=== PATIENT | female | born 1930 | race Caucasian/White ===

== ENCOUNTER 2016-12-29 08:25 | Inpatient (IN) | payer MEDICARE ==
[~2016-12-29] VITALS: Ht 170.2 cm; Wt 52.3 kg
[~2016-12-29 08:25] MED LIST: ACET325T21 PO; ACET650S11 RC; BISA10SU2 RC; CALC-104 PO; CARV25TA2 PO; CEFT1FRO2 IV; CHOL400T2 PO; DIGO125T PO; DILT180C29 PO; DILT240C32 PO; ERGO400T PO; FOLI1TAB16 PO; GUAI118S36 PO; LISI10TA2 PO; LISI2.5T PO; MAG355OR30 PO; MAGN400O4 PO; MEMA10TA PO; MIRT15TA PO; NITR0.4T6 SL; NITR100C62 PO; OMEG1CAP28 PO; OMEG1CAP6 PO; SERT50TA8 PO; SPIR25TA PO; WARF2TAB7 PO; WARF3TAB PO
--- NOTE | 2016-12-29 08:58 | EKG ---
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
[2016-12-29] MEDS ORDERED: ONDANSETRON PF 4 MG/2 ML VIAL. IV PRN (09:00)
[2016-12-29] MEDS ORDERED: DILTIAZEM 125 MG in IV DEXTROSE 5% 100 ML IV PRN (09:00)
--- NOTE | 2016-12-29 09:22 | RAD ---
Three-view left shoulder radiographs 12/29/2016 Clinical history: Left shoulder bruising. AP internal and external rotation and transscapular digital radiographs of the left shoulder were obtained. An acute comminuted fracture of the distal diaphysis/metaphysis of the left clavicle is seen. The fracture is approximately 1.2 cm proximal to the left AC joint. No extension into the left AC joint is seen. Some of the smaller fracture fragments are displaced inferiorly. No fracture or dislocation of the left glenohumeral joint is seen. Impression: Acute comminuted fracture of the distal left clavicle.
--- NOTE | 2016-12-29 09:25 | RAD ---
AP portable chest radiograph 12/29/2016 Clinical History: Fatigue and confusion. An AP portable erect digital radiograph of the chest was obtained. Comparison study is dated 11/20/2016. Surgical changes are seen consistent with a cardiac valve replacement. The cardiac silhouette is mildly enlarged. Atherosclerotic calcification of the thoracic aorta is seen. Mild elevation of the right hemidiaphragm is noted. A 1 cm nodule overlies the left upper lobe, unchanged. The pleural effusion seen on the previous examination has resolved. No area of consolidation is noted. No pneumothorax is seen. An area of scarring is seen in the lateral aspect of the left upper lobe, unchanged. An acute comminuted fracture of the distal left clavicle is noted. Impression: 1. Cardiomegaly. The pleural effusions seen on the previous examination have resolved. No area of consolidation is seen. 2. Acute comminuted fracture of the distal left clavicle.
--- NOTE | 2016-12-29 10:03 | RAD ---
CT scan of the head without contrast 12/29/2016 Clinical History: Head trauma post fall.. Technique: Unenhanced, contiguous, 5 mm axial sections were obtained through the head. One or more of the following individualized dose reduction techniques were utilized for this study: 1. Automated exposure control. 2. Adjustment of the mA and/or kV according to patient size. 3. Use of iterative reconstruction technique. Findings: Comparison study is dated 09/15/2013. There is generalized parenchymal atrophy. Small scattered areas of decreased attenuation are seen within the periventricular and subcortical white matter of both cerebral hemispheres consistent with areas of small vessel ischemic disease. Areas of encephalomalacia are seen involving the left cerebellar hemisphere and the left posterior temporal/occipital parietal lobe, unchanged. No acute parenchymal abnormality is seen. No extra-axial fluid collection is noted. Mild to moderate mucosal thickening is seen along the left maxillary sinus. No skull fracture is seen. Impression: No acute intracranial abnormality is seen. CT scan of the cervical spine without contrast 12/29/2016 Clinical history: Neck pain post fall. Technique: Unenhanced, contiguous, 0.625 mm axial sections were obtained through the cervical spine. 3 mm reconstructed sagittal, axial, and and coronal images were obtained. One or more of the following individualized dose reduction techniques were utilized for this study: 1. Automated exposure control. 2. Adjustment of the mA and/or kV according to patient size. 3. Use of iterative reconstruction technique. Findings: Sagittal and coronal reconstructed images demonstrate minimal lateral curvature of the cervical spine convex to the left. There is mild straightening of the normal cervical lordosis. Degenerative changes consisting of vertebral endplate sclerosis and minimal to mild anterior and posterior vertebral body osteophyte formation are seen involving the mid and lower cervical disc spaces. No fracture or subluxation of the cervical vertebrae is seen. Degenerative changes are seen involving the uncovertebral and facet joints throughout the cervical disc spaces. Impression: No fracture or subluxation of the cervical vertebra is seen.
[2016-12-29 10:09] LABS: BASO % 0 % (0-3); EOS % 1 % (0-3); HEMATOCRIT 41.6 % (36.0-47.0); HEMOGLOBIN 13.5 g/dL (12.0-15.5); LYMPH % 10 % (24-48); MEAN CORPUSCULAR HEMOGLOBIN 28 pg (25-35); MEAN CORPUSCULAR HGB CONC 33 g/dL (31-37); MEAN CORPUSCULAR VOLUME 85 fL (79-100); MONO % 10 % (0-9); NEUT % 79 % (31-73); PLATELET COUNT 252 x10^3/uL (140-400); RED BLOOD COUNT 4.89 x10^6/uL (3.50-5.40); WHITE BLOOD COUNT 9.9 x10^3/uL (4.0-11.0)
[2016-12-29 10:17] LABS: CALCIUM 9.9 mg/dL (8.5-10.1); CREATININE 1.3 mg/dL (0.6-1.0); POTASSIUM 4.5 mmol/L (3.5-5.1)
--- NOTE | 2016-12-29 10:23 | RAD ---
Three-view left elbow radiographs 12/29/2016. Clinical history: Left elbow bruising. AP, lateral and oblique digital radiographs of the left elbow were obtained. A 7 mm metallic foreign body is seen within the medial soft tissues of the distal left arm superior to the left elbow. No fracture or dislocation of the left elbow is seen. There is no radiographic evidence of a joint effusion. Impression: No fracture or dislocation of the left elbow is seen.
[2016-12-29 10:24] LABS: ALBUMIN 3.9 g/dL (3.4-5.0); DIRECT BILIRUBIN 0.2 mg/dL (0.0-0.2); TOTAL BILIRUBIN 0.9 mg/dL (0.2-1.0); TOTAL PROTEIN 9.2 g/dL (6.4-8.2)
[2016-12-29] MEDS ORDERED: IV NORMAL SALINE 500ML BAG 500 ML IV ONE (10:30)
--- NOTE | 2016-12-29 10:34 | PHYS DOC ---
Past Medical History Past Medical History: A-Fib, CAD, CHF, Dementia, Depression, GERD, High Cholesterol, Heart Disease, Hypertension, [place], Renal Disease, UTI Additional Past Medical Histor: ENDOCARDITIS, OSTEOPOROSIS Past Surgical History: Pacemaker, Other Additional Past Surgical Histo: MITRAL VALVE REPLACEMENT, Pacemaker removed, Skin CA removed Alcohol Use: None Drug Use: None Adult General Chief Complaint Chief Complaint: MECHANICAL FALL HPI HPI 86-year-old female presenting to the emergency department today after being brought in from EMS after being found on the floor long-term. It is unclear how long the patient is been on the floor however to be up to 6 hours reported by long-term staff. Patient was placed in a c-collar prior to arrival. She denies head or neck pain. She denies chest pain shortness of breath. Currently her mental status is reportedly worse than baseline and oriented person only. skilled nursing denies any history of fever chills cough abdominal pain nausea or vomiting. Onset today Location generalized Duration intermittent No alleviating factors present. ROS negative for chest pain shortness of breath abdominal pain nausea vomiting fevers chills neck pain or headache. She denies unilateral numbness weakness or tenderness. All other review of systems is negative unless otherwise noted in history of present illness. Review of Systems Review of Systems SEE ABOVE. Current Medications Current Medications Current Medications Medications (Trade) Dose Ordered Sig/Alan Start Time Stop Time Status Last Admin Dose Admin Diltiazem HCl/ Dextrose (Cardizem) 125 ml @ 0 mls/hr CONT PRN 12/29/16 09:00 12/29/16 10:15 5 MLS/HR Morphine Sulfate 2 mg 2 mg PRN Q2HR PRN 12/29/16 09:00 12/30/16 08:59 Ondansetron HCl (Zofran) 4 mg PRN Q8HRS PRN 12/29/16 09:00 12/30/16 08:59 Allergies Allergies Allergies Coded Allergies Type Severity Reaction Last Updated Verified sulfamethoxazole Allergy Intermediate 09/08/16 Yes trimethoprim Allergy Intermediate 09/08/16 Yes zolpidem Allergy Intermediate 06/23/14 Yes Physical Exam Physical Exam Constitutional: Well developed, well nourished, no acute distress, non-toxic appearance. [] HENT: Normocephalic, no lacerations abrasions or ecchymosis of the head or neck. No step-offs of the neck thoracic lumbar or cervical spine. Nontender midline. bilateral external ears normal, oropharynx moist, no oral exudates, nose normal. Eyes: PERRLA, EOMI, conjunctiva normal, no discharge. Neck: Normal range of motion, no tenderness, supple, no stridor. [] Cardiovascular: Tachycardic with an irregular rhythm. Mild systolic murmur present. Lungs & Thorax: Bilateral breath sounds clear to auscultation Abdomen: Bowel sounds normal, soft, no tenderness, no masses, no pulsatile masses. Skin: Warm, dry, no erythema, no rash. Back: No tenderness, no CVA tenderness. [] Extremities: No tenderness, no cyanosis, no clubbing, ROM intact, no edema. Neurologic: Alert and oriented to person, normal motor function, normal sensory function, no focal deficits noted. 5 out of 5 strength in all extremities. Psychologic: Affect normal, judgement normal, mood normal. Current Patient Data Vital Signs Vital Signs Date Time Temp Pulse Resp B/P Pulse Ox O2 Delivery O2 Flow Rate FiO2 12/29/16 08:25 97.5 115 16 168/101 97 Room Air 97.5 EKG EKG [] EKG shows an irregularly irregular rhythm with a tachycardic rate. [place] leftward. Intervals within normal limits. ST segments show mild repolarization. Radiology/Procedures Radiology/Procedures [] Course & Med Decision Making Course & Med Decision Making Pertinent Labs and Imaging studies reviewed. (See chart for details) [] 86-year-old female presenting to the emergency department today after being found down for an unknown period of time from possible fall, possible syncopal episode. Vital signs showed tachycardia afebrile. Patient was saturating well on room air. Hypertensive. Physical exam showed a tachycardic rate otherwise no evidence of trauma to the patient's head or neck. The patient did have extensive bruising of the left upper extremity which is reportedly not new from long-term facility. EKG obtained which showed A. fib with RVR. Otherwise chest x-ray head neck CT were unremarkable for any new acute pathology. Shoulder films showed subacute/acute distal clavicle fracture that was already known. The patient was in a sling upon arrival to the emergency department. The patient was initiated on a diltiazem drip for the patient's rate. The patient was admitted to our hospital for further evaluation workup and care. Orthopedics and cardiology consultations were placed. Dragon Disclaimer Dragon Disclaimer This electronic medical record was generated, in whole or in part, using a voice recognition dictation system. Departure Departure Impression: Primary Impression: Altered mental status Additional Impressions: Atrial fibrillation with RVR Mental status change Closed left clavicular fracture Disposition: ADMITTED INPATIENT Admitting Physician: Aaron Solorio Condition: STABLE Referrals: AARON SOLORIO MD (PCP) Problem Qualifiers MC GLASS MD Dec 29, 2016 10:34
[2016-12-29 10:45] LABS: BILIRUBIN,URINE NEGATIVE (NEG); GLUCOSE,URINE NEGATIVE (NEG); NITRITE,URINE NEGATIVE (NEG); PH,URINE 6.5; PROTEIN,URINE NEGATIVE (NEG-TRACE)
[2016-12-29] MEDS ORDERED: ASPIRIN 81 MG TAB.CHEW PO ONE (10:45)
[2016-12-29 11:00] LABS: BACTERIA,URINE FEW /HPF (0-FEW); RBC,URINE 0 /HPF (0-2); SQUAMOUS EPITHELIAL CELL,UR FEW /LPF; WBC,URINE OCC /HPF (0-4)
[2016-12-29] MEDS: MORPHINE SULFATE 2 MG/ML DISP.SYRIN. IV PRN ×2 (11:01→16:20)
[2016-12-29 12:00] VITALS: BP 100/60
[2016-12-29] MEDS ORDERED: FENTANYL PF 100 MCG/2 ML VIAL. IV PRN ×2 (14:45)
[2016-12-29 15:00] VITALS: BP 113/54
[2016-12-29 19:00] VITALS: BP 135/82
--- NOTE | 2016-12-29 19:25 | PDOC ---
ORTHO PROGRESS NOTES Vitals Vital Signs Date Time Temp Pulse Resp B/P Pulse Ox O2 Delivery O2 Flow Rate FiO2 12/29/16 18:36 16 98 Room Air 12/29/16 11:31 98 146/67 12/29/16 11:31 2.0 12/29/16 08:25 97.5 97.5 Labs Laboratory Tests Test 12/29/16 10:00 12/29/16 10:24 12/29/16 14:40 White Blood Count 9.9x10^3/uL (4.0-11.0) Red Blood Count 4.89x10^6/uL (3.50-5.40) Hemoglobin 13.5g/dL (12.0-15.5) Hematocrit 41.6% (36.0-47.0) Mean Corpuscular Volume 85fL (79-100) Mean Corpuscular Hemoglobin 28pg (25-35) Mean Corpuscular Hemoglobin Concent 33g/dL (31-37) Red Cell Distribution Width 16.0% (11.5-14.5) Platelet Count 252x10^3/uL (140-400) Neutrophils (%) (Auto) 79% (31-73) Lymphocytes (%) (Auto) 10% (24-48) Monocytes (%) (Auto) 10% (0-9) Eosinophils (%) (Auto) 1% (0-3) Basophils (%) (Auto) 0% (0-3) Neutrophils # (Auto) 7.8x10^3uL (1.8-7.7) Lymphocytes # (Auto) 1.0x10^3/uL (1.0-4.8) Monocytes # (Auto) 1.0x10^3/uL (0.0-1.1) Eosinophils # (Auto) 0.1x10^3/uL (0.0-0.7) Basophils # (Auto) 0.0x10^3/uL (0.0-0.2) Sodium Level 140mmol/L (136-145) Potassium Level 4.5mmol/L (3.5-5.1) Chloride Level 101mmol/L (98-107) Carbon Dioxide Level 29mmol/L (21-32) Anion Gap 10 (6-14) Blood Urea Nitrogen 42mg/dL (7-20) Creatinine 1.3mg/dL (0.6-1.0) Estimated GFR (Cockcroft-Gault) 39.0 Glucose Level 114mg/dL (70-99) Calcium Level 9.9mg/dL (8.5-10.1) Total Bilirubin 0.9mg/dL (0.2-1.0) Direct Bilirubin 0.2mg/dL (0.0-0.2) Aspartate Amino Transf (AST/SGOT) 46U/L (15-37) Alanine Aminotransferase (ALT/SGPT) 33U/L (14-59) Alkaline Phosphatase 116U/L (46-116) Creatine Kinase 263U/L (26-192) Troponin I Quantitative 0.307ng/mL (0.000-0.055) 0.285ng/mL (0.000-0.055) FA-Zbr-H-Type Natriuretic Peptide 2775pg/mL (0-449) Total Protein 9.2g/dL (6.4-8.2) Albumin 3.9g/dL (3.4-5.0) Lipase 630U/L (73-393) Urine Collection Type Void Urine Color Yellow Urine Clarity Clear Urine pH 6.5 Urine Specific Roper 1.010 Urine Protein Negativemg/dL (NEG-TRACE) Urine Glucose (UA) Negativemg/dL (NEG) Urine Ketones (Stick) Negativemg/dL (NEG) Urine Blood Negative (NEG) Urine Nitrite Negative (NEG) Urine Bilirubin Negative (NEG) Urine Urobilinogen Dipstick 1.0mg/dL (0.2 mg/dL) Urine Leukocyte Esterase Negative (NEG) Urine RBC 0/HPF (0-2) Urine WBC Occ/HPF (0-4) Urine Squamous Epithelial Cells Few/LPF Urine Bacteria Few/HPF (0-FEW) Laboratory Tests Test 12/29/16 10:00 12/29/16 10:24 12/29/16 14:40 White Blood Count 9.9x10^3/uL (4.0-11.0) Red Blood Count 4.89x10^6/uL (3.50-5.40) Hemoglobin 13.5g/dL (12.0-15.5) Hematocrit 41.6% (36.0-47.0) Mean Corpuscular Volume 85fL (79-100) Mean Corpuscular Hemoglobin 28pg (25-35) Mean Corpuscular Hemoglobin Concent 33g/dL (31-37) Red Cell Distribution Width 16.0% (11.5-14.5) Platelet Count 252x10^3/uL (140-400) Neutrophils (%) (Auto) 79% (31-73) Lymphocytes (%) (Auto) 10% (24-48) Monocytes (%) (Auto) 10% (0-9) Eosinophils (%) (Auto) 1% (0-3) Basophils (%) (Auto) 0% (0-3) Neutrophils # (Auto) 7.8x10^3uL (1.8-7.7) Lymphocytes # (Auto) 1.0x10^3/uL (1.0-4.8) Monocytes # (Auto) 1.0x10^3/uL (0.0-1.1) Eosinophils # (Auto) 0.1x10^3/uL (0.0-0.7) Basophils # (Auto) 0.0x10^3/uL (0.0-0.2) Sodium Level 140mmol/L (136-145) Potassium Level 4.5mmol/L (3.5-5.1) Chloride Level 101mmol/L (98-107) Carbon Dioxide Level 29mmol/L (21-32) Anion Gap 10 (6-14) Blood Urea Nitrogen 42mg/dL (7-20) Creatinine 1.3mg/dL (0.6-1.0) Estimated GFR (Cockcroft-Gault) 39.0 Glucose Level 114mg/dL (70-99) Calcium Level 9.9mg/dL (8.5-10.1) Total Bilirubin 0.9mg/dL (0.2-1.0) Direct Bilirubin 0.2mg/dL (0.0-0.2) Aspartate Amino Transf (AST/SGOT) 46U/L (15-37) Alanine Aminotransferase (ALT/SGPT) 33U/L (14-59) Alkaline Phosphatase 116U/L (46-116) Creatine Kinase 263U/L (26-192) Troponin I Quantitative 0.307ng/mL (0.000-0.055) 0.285ng/mL (0.000-0.055) VO-Ewa-R-Type Natriuretic Peptide 2775pg/mL (0-449) Total Protein 9.2g/dL (6.4-8.2) Albumin 3.9g/dL (3.4-5.0) Lipase 630U/L (73-393) Urine Collection Type Void Urine Color Yellow Urine Clarity Clear Urine pH 6.5 Urine Specific Roper 1.010 Urine Protein Negativemg/dL (NEG-TRACE) Urine Glucose (UA) Negativemg/dL (NEG) Urine Ketones (Stick) Negativemg/dL (NEG) Urine Blood Negative (NEG) Urine Nitrite Negative (NEG) Urine Bilirubin Negative (NEG) Urine Urobilinogen Dipstick 1.0mg/dL (0.2 mg/dL) Urine Leukocyte Esterase Negative (NEG) Urine RBC 0/HPF (0-2) Urine WBC Occ/HPF (0-4) Urine Squamous Epithelial Cells Few/LPF Urine Bacteria Few/HPF (0-FEW) Assessment and Plan note dictated subacute closed L distal clavicle fx, non-op tx PT when able to comply SIMONE CASTELAN II, MD Dec 29, 2016 19:25
[2016-12-29 23:00] VITALS: BP 100/69
[2016-12-30] VITALS (9 sets, daily range): BP systolic 91–157; BP diastolic 55–85
[2016-12-30 05:40] LABS: BASO # 0.1 x10^3/uL (0.0-0.2); BASO % 1 % (0-3); EOS % 4 % (0-3); HEMATOCRIT 35.2 % (36.0-47.0); HEMOGLOBIN 11.7 g/dL (12.0-15.5); LYMPH # 1.3 x10^3/uL (1.0-4.8); LYMPH % 16 % (24-48); MEAN CORPUSCULAR HEMOGLOBIN 28 pg (25-35); MEAN CORPUSCULAR HGB CONC 33 g/dL (31-37); MEAN CORPUSCULAR VOLUME 85 fL (79-100); MONO % 10 % (0-9); NEUT % 70 % (31-73); PLATELET COUNT 217 x10^3/uL (140-400); RED BLOOD COUNT 4.14 x10^6/uL (3.50-5.40); RED CELL DISTRIBUTION WIDTH 16.3 % (11.5-14.5); WHITE BLOOD COUNT 8.6 x10^3/uL (4.0-11.0)
[2016-12-30 05:57] LABS: CALCIUM 8.1 mg/dL (8.5-10.1); CREATININE 1.3 mg/dL (0.6-1.0); POTASSIUM 4.4 mmol/L (3.5-5.1)
--- NOTE | 2016-12-30 10:12 | PDOC2 ---
CARDIAC CONSULT DATE OF CONSULT Date of Consult DATE: 12/30/16 TIME: 10:01 REASON FOR CONSULT Reason for Consult: atrial fib RVR REFERRING PHYSICIAN Referring Physician: Dr. Forest Adorno SOURCE Source: Chart review HISTORY OF PRESENT ILLNESS HISTORY OF PRESENT ILLNESS 86 year old female known to this service with history of atrial fibrillation and syncope with 9 second pause associated with use of BB and CCB while undergoing PT. Has been rate controlled with digoxin. Was discharge to [facility] on 11/23/2016. Now with reported fall at [facility] and down time of up to 6 hours per ER records. Patient states she tripped and fell a week ago but could not state what she tripped on. Ecchymosis present on left chest extending up into shoulder and into left arm. Currently denies CP, palpitations or dyspnea. EKG atrial fib with rate about 120. NT-proBNP 2275 associated with CKD and CR of 1.3. Reason for Visit: atrial fib PAST MEDICAL HISTORY Past Medical History Cardiovascular: AFIB, CHF, HTN, Valve insufficiency (prosthetic mitral valve with presumed mitral regurgitation), Other (? of SSS with previous PPM - ? explanted for infection ) CENTRAL NERVOUS SYSTEM: CVA, Dementia GI: GERD Psych: Anxiety, Depression Musculoskeletal: Osteoarthritis Renal/: UTI, Urinary Incontinence Endocrine: Osteoporosis PAST SURGICAL HISTORY Past Surgical History see PMH FAMILY HISTORY Family History: Hypertension SOCIAL HISTORY Smoke: No ALCOHOL: none Drugs: None Lives: with Family CURRENT MEDICATIONS CURRENT MEDICATIONS Current Medications Medications (Trade) Dose Ordered Sig/Alan Route PRN Reason Start Time Stop Time Status Last Admin Dose Admin Sodium Chloride (Iv Sodium Chloride 0.9% 500ml Bag) 500 ml @ 500 mls/hr 1X ONCE IV 12/29/16 10:30 12/29/16 11:29 DC 12/29/16 10:50 Aspirin (Children'S Aspirin) 324 mg 1X ONCE PO 12/29/16 10:45 12/29/16 10:46 DC 12/29/16 10:55 Fentanyl Citrate (Fentanyl 2ml Vial) 50 mcg PRN Q3HRS PRN IV SEVERE PAIN 12/29/16 14:45 12/29/16 15:03 Fentanyl Citrate (Fentanyl 2ml Vial) 25 mcg PRN Q3HRS PRN IV MILD PAIN 12/29/16 14:45 12/29/16 18:36 ALLERGIES ALLERGIES: Coded Allergies: sulfamethoxazole (Verified Allergy, Intermediate, 09/08/16) trimethoprim (Verified Allergy, Intermediate, 09/08/16) zolpidem (Verified Allergy, Intermediate, 06/23/14) Beta-Blockers (Beta-Adrenergic Bloc (Verified Adverse Reaction, Severe, has cardiac pauses , 12/30/16) Calcium Channel Blocking Agent Dilt (Verified Adverse Reaction, Severe, has cardiac pauses, 12/30/16) ROS Review of System not reliably obtained from patient due to dementia PHYSICAL EXAM General: Alert, Cooperative HEENT: Atraumatic Lungs: Clear to auscultation, Normal air movement, Other (extensive ecchymosis over left upper chest, shoulder and left arm) Heart: Other (mechanical valvular click; tele: atrial fib with RVR) Abdomen: Normal bowel sounds, Soft, No tenderness Extremities: No edema, Normal pulses Skin: No rashes Neuro: Normal speech Psych/Mental Status: Mood NL MUSCULOSKELETAL: Osteoarthritic changes both hands VITALS VITALS Vital Signs Date Time Temp Pulse Resp B/P Pulse Ox O2 Delivery O2 Flow Rate FiO2 12/30/16 03:00 98.4 111 118/68 99 Simple Mask 2.0 98.4 12/29/16 23:00 30 LABS Lab: Laboratory Tests Test 12/29/16 10:24 12/29/16 14:40 12/29/16 20:58 12/30/16 04:55 Urine Collection Type Void Urine Color Yellow Urine Clarity Clear Urine pH 6.5 Urine Specific [place] 1.010 Urine Protein Negativemg/dL (NEG-TRACE) Urine Glucose (UA) Negativemg/dL (NEG) Urine Ketones (Stick) Negativemg/dL (NEG) Urine Blood Negative (NEG) Urine Nitrite Negative (NEG) Urine Bilirubin Negative (NEG) Urine Urobilinogen Dipstick 1.0mg/dL (0.2 mg/dL) Urine Leukocyte Esterase Negative (NEG) Urine RBC 0/HPF (0-2) Urine WBC Occ/HPF (0-4) Urine Squamous Epithelial Cells Few/LPF Urine Bacteria Few/HPF (0-FEW) Troponin I Quantitative 0.285ng/mL (0.000-0.055) 0.277ng/mL (0.000-0.055) White Blood Count 8.6x10^3/uL (4.0-11.0) Red Blood Count 4.14x10^6/uL (3.50-5.40) Hemoglobin 11.7g/dL (12.0-15.5) Hematocrit 35.2% (36.0-47.0) Mean Corpuscular Volume 85fL (79-100) Mean Corpuscular Hemoglobin 28pg (25-35) Mean Corpuscular Hemoglobin Concent 33g/dL (31-37) Red Cell Distribution Width 16.3% (11.5-14.5) Platelet Count 217x10^3/uL (140-400) Neutrophils (%) (Auto) 70% (31-73) Lymphocytes (%) (Auto) 16% (24-48) Monocytes (%) (Auto) 10% (0-9) Eosinophils (%) (Auto) 4% (0-3) Basophils (%) (Auto) 1% (0-3) Neutrophils # (Auto) 6.1x10^3uL (1.8-7.7) Lymphocytes # (Auto) 1.3x10^3/uL (1.0-4.8) Monocytes # (Auto) 0.8x10^3/uL (0.0-1.1) Eosinophils # (Auto) 0.3x10^3/uL (0.0-0.7) Basophils # (Auto) 0.1x10^3/uL (0.0-0.2) Sodium Level 140mmol/L (136-145) Potassium Level 4.4mmol/L (3.5-5.1) Chloride Level 107mmol/L (98-107) Carbon Dioxide Level 27mmol/L (21-32) Anion Gap 6 (6-14) Blood Urea Nitrogen 40mg/dL (7-20) Creatinine 1.3mg/dL (0.6-1.0) Estimated GFR (Cockcroft-Gault) 39.0 Glucose Level 91mg/dL (70-99) Calcium Level 8.1mg/dL (8.5-10.1) IMAGES IMAGES 12/29/2016: CXR: Surgical changes are seen consistent with a cardiac valve replacement. The cardiac silhouette is mildly enlarged. Atherosclerotic calcification of the thoracic aorta is seen. Mild elevation of the right hemidiaphragm is noted. A 1 cm nodule overlies the left upper lobe, unchanged. The pleural effusion seen on the previous examination has resolved. No area of consolidation is noted. No pneumothorax is seen. An area of scarring is seen in the lateral aspect of the left upper lobe, unchanged. An acute comminuted fracture of the distal left clavicle is noted. Impression: 1. Cardiomegaly. The pleural effusions seen on the previous examination have resolved. No area of consolidation is seen. 2. Acute comminuted fracture of the distal left clavicle. EKG EKG atrial fib; rate ~ 120; no acute changes ECHOCARDIOGRAM ECHOCARDIOGRAM : TTE: Left ventricle systolic function is mildly impaired. The Ejection Fraction is 45 -50%. Mild global hypokinesis. Tissue Doppler imaging reveals moderate left ventricular diastolic dysfunction. There is mild valvular aortic stenosis. Calculated aortic valve area is 1.6 cm2 with maximum pressure gradient of 13 mmHg and mean pressure gradient of 9 mmHg. The prosthetic mitral valve is not well visualized due to imaging artifacts from the prosthesis. Doppler and Color Flow revealed mild tricuspid regurgitation. The PA pressure was estimated at 32 mmHg. STRESS TEST STRESS TEST 08/2016: 1. Regadenoson cardioisotope stress test did not show any evidence of ischemia or infarct. 2. Mild global left ventricular systolic dysfunction with ejection fraction calculated at 43% 3. Low to intermediate risk for cardiac events. ASSESSMENT/PLAN ASSESSMENT/PLAN 1. atrial fib, chronic RVR likely due to pain/injury would not use diltiazem given history of 9 second pause previous PPM thought to be implanted for SSS; explanted for presumed infection ` DPOA (son) declined PPM implantation during 2 prior hospitalizations rate control with digoxin QOD due to CKD and may need to only given every 72 hours - monito 2. mechanical MVR with chronic OAC continue per primary service 3. chronic diastolic HF LVEF mildly depressed @ 45-50% continue medical management & control BP with meds 4. elevated troponin levels likely demand mediated and in the setting of CKD MPI 08/2016 was low to intermediate risk - given her dementia - not a candidate for aggressive evaluation/dementia 5. left clavicular fracture per primary/ortho Problems: VISHAL MENCHACA APRN Dec 30, 2016 10:11
[2016-12-30] MEDS ORDERED: DIGOXIN 500 MCG/2 ML AMPUL. IV ONE ×3 (10:15→20:00)
--- NOTE | 2016-12-30 13:03 | PDOC ---
PROGRESS NOTES Subjective Subjective Pt awake and pleasant. Denies pain when prompted. Objective Objective Pt awake and alert. NAD. VSS. Afebrile. Lungs CTA bilat. Resp even and unlabored. Heart in Afib, rate 114 on Cardizem gtt. Bruising present to left upper extremity. Pt in arm sling. Vital Signs Date Time Temp Pulse Resp B/P Pulse Ox O2 Delivery O2 Flow Rate FiO2 12/30/16 12:00 97.8 114 91/62 95 Room Air 97.8 12/30/16 03:00 2.0 12/29/16 23:00 30 Intake and Output 12/30/16 07:00 Intake Total 2210 ml Balance 2210 ml Intake Oral 1700 ml Other 510 ml # Voids 6 Assessment Assessment Problems Medical Problems: (1) Altered mental status Status: Acute (2) Atrial fibrillation with RVR Status: Acute (3) Closed left clavicular fracture Status: Acute (4) Mental status change Status: Acute Plan Plan of Care 1. Afib with RVR -Cardizem gtt -Cardiology consulted 2. Mechanical fall with fx of left clavicle -CT head and neck negative -x-ray left forearm negative -Ortho consulted 3. ARF -Creat 1.3 -Recheck BMP in am 4. Underlying dementia Comment Review of Relevant I have reviewed the following items abiodun (where applicable) has been applied. Labs Laboratory Tests Test 12/29/16 10:00 12/29/16 10:24 12/29/16 14:40 12/29/16 20:58 White Blood Count 9.9x10^3/uL (4.0-11.0) Red Blood Count 4.89x10^6/uL (3.50-5.40) Hemoglobin 13.5g/dL (12.0-15.5) Hematocrit 41.6% (36.0-47.0) Mean Corpuscular Volume 85fL (79-100) Mean Corpuscular Hemoglobin 28pg (25-35) Mean Corpuscular Hemoglobin Concent 33g/dL (31-37) Red Cell Distribution Width 16.0% (11.5-14.5) Platelet Count 252x10^3/uL (140-400) Neutrophils (%) (Auto) 79% (31-73) Lymphocytes (%) (Auto) 10% (24-48) Monocytes (%) (Auto) 10% (0-9) Eosinophils (%) (Auto) 1% (0-3) Basophils (%) (Auto) 0% (0-3) Neutrophils # (Auto) 7.8x10^3uL (1.8-7.7) Lymphocytes # (Auto) 1.0x10^3/uL (1.0-4.8) Monocytes # (Auto) 1.0x10^3/uL (0.0-1.1) Eosinophils # (Auto) 0.1x10^3/uL (0.0-0.7) Basophils # (Auto) 0.0x10^3/uL (0.0-0.2) Sodium Level 140mmol/L (136-145) Potassium Level 4.5mmol/L (3.5-5.1) Chloride Level 101mmol/L (98-107) Carbon Dioxide Level 29mmol/L (21-32) Anion Gap 10 (6-14) Blood Urea Nitrogen 42mg/dL (7-20) Creatinine 1.3mg/dL (0.6-1.0) Estimated GFR (Cockcroft-Gault) 39.0 Glucose Level 114mg/dL (70-99) Calcium Level 9.9mg/dL (8.5-10.1) Total Bilirubin 0.9mg/dL (0.2-1.0) Direct Bilirubin 0.2mg/dL (0.0-0.2) Aspartate Amino Transf (AST/SGOT) 46U/L (15-37) Alanine Aminotransferase (ALT/SGPT) 33U/L (14-59) Alkaline Phosphatase 116U/L (46-116) Creatine Kinase 263U/L (26-192) Troponin I Quantitative 0.307ng/mL (0.000-0.055) 0.285ng/mL (0.000-0.055) 0.277ng/mL (0.000-0.055) YQ-Yiy-M-Type Natriuretic Peptide 2775pg/mL (0-449) Total Protein 9.2g/dL (6.4-8.2) Albumin 3.9g/dL (3.4-5.0) Lipase 630U/L (73-393) Urine Collection Type Void Urine Color Yellow Urine Clarity Clear Urine pH 6.5 Urine Specific [place] 1.010 Urine Protein Negativemg/dL (NEG-TRACE) Urine Glucose (UA) Negativemg/dL (NEG) Urine Ketones (Stick) Negativemg/dL (NEG) Urine Blood Negative (NEG) Urine Nitrite Negative (NEG) Urine Bilirubin Negative (NEG) Urine Urobilinogen Dipstick 1.0mg/dL (0.2 mg/dL) Urine Leukocyte Esterase Negative (NEG) Urine RBC 0/HPF (0-2) Urine WBC Occ/HPF (0-4) Urine Squamous Epithelial Cells Few/LPF Urine Bacteria Few/HPF (0-FEW) Test 12/30/16 04:55 White Blood Count 8.6x10^3/uL (4.0-11.0) Red Blood Count 4.14x10^6/uL (3.50-5.40) Hemoglobin 11.7g/dL (12.0-15.5) Hematocrit 35.2% (36.0-47.0) Mean Corpuscular Volume 85fL (79-100) Mean Corpuscular Hemoglobin 28pg (25-35) Mean Corpuscular Hemoglobin Concent 33g/dL (31-37) Red Cell Distribution Width 16.3% (11.5-14.5) Platelet Count 217x10^3/uL (140-400) Neutrophils (%) (Auto) 70% (31-73) Lymphocytes (%) (Auto) 16% (24-48) Monocytes (%) (Auto) 10% (0-9) Eosinophils (%) (Auto) 4% (0-3) Basophils (%) (Auto) 1% (0-3) Neutrophils # (Auto) 6.1x10^3uL (1.8-7.7) Lymphocytes # (Auto) 1.3x10^3/uL (1.0-4.8) Monocytes # (Auto) 0.8x10^3/uL (0.0-1.1) Eosinophils # (Auto) 0.3x10^3/uL (0.0-0.7) Basophils # (Auto) 0.1x10^3/uL (0.0-0.2) Sodium Level 140mmol/L (136-145) Potassium Level 4.4mmol/L (3.5-5.1) Chloride Level 107mmol/L (98-107) Carbon Dioxide Level 27mmol/L (21-32) Anion Gap 6 (6-14) Blood Urea Nitrogen 40mg/dL (7-20) Creatinine 1.3mg/dL (0.6-1.0) Estimated GFR (Cockcroft-Gault) 39.0 Glucose Level 91mg/dL (70-99) Calcium Level 8.1mg/dL (8.5-10.1) Laboratory Tests Test 12/29/16 14:40 12/29/16 20:58 12/30/16 04:55 Troponin I Quantitative 0.285ng/mL (0.000-0.055) 0.277ng/mL (0.000-0.055) White Blood Count 8.6x10^3/uL (4.0-11.0) Red Blood Count 4.14x10^6/uL (3.50-5.40) Hemoglobin 11.7g/dL (12.0-15.5) Hematocrit 35.2% (36.0-47.0) Mean Corpuscular Volume 85fL (79-100) Mean Corpuscular Hemoglobin 28pg (25-35) Mean Corpuscular Hemoglobin Concent 33g/dL (31-37) Red Cell Distribution Width 16.3% (11.5-14.5) Platelet Count 217x10^3/uL (140-400) Neutrophils (%) (Auto) 70% (31-73) Lymphocytes (%) (Auto) 16% (24-48) Monocytes (%) (Auto) 10% (0-9) Eosinophils (%) (Auto) 4% (0-3) Basophils (%) (Auto) 1% (0-3) Neutrophils # (Auto) 6.1x10^3uL (1.8-7.7) Lymphocytes # (Auto) 1.3x10^3/uL (1.0-4.8) Monocytes # (Auto) 0.8x10^3/uL (0.0-1.1) Eosinophils # (Auto) 0.3x10^3/uL (0.0-0.7) Basophils # (Auto) 0.1x10^3/uL (0.0-0.2) Sodium Level 140mmol/L (136-145) Potassium Level 4.4mmol/L (3.5-5.1) Chloride Level 107mmol/L (98-107) Carbon Dioxide Level 27mmol/L (21-32) Anion Gap 6 (6-14) Blood Urea Nitrogen 40mg/dL (7-20) Creatinine 1.3mg/dL (0.6-1.0) Estimated GFR (Cockcroft-Gault) 39.0 Glucose Level 91mg/dL (70-99) Calcium Level 8.1mg/dL (8.5-10.1) Medications Current Medications Ondansetron HCl (Zofran) 4 mg PRN Q8HRS PRN IV NAUSEA/VOMITING Last administered on 12/29/16 10:57; Start 12/29/16 at 09:00; Stop 12/30/16 at 08:59; Status DC Morphine Sulfate 2 mg 2 mg PRN Q2HR PRN IV PAIN Last administered on 12/29/16 16:20; Start 12/29/16 at 09:00; Stop 12/30/16 at 08:59; Status DC Diltiazem HCl 125 mg/Dextrose 125 ml @ 0 mls/hr CONT PRN IV SEE I/O RECORD Last administered on 12/29/16 10:15; Start 12/29/16 at 09:00; Stop 12/30/16 at 10: 36; Status DC Sodium Chloride (Iv Sodium Chloride 0.9% 500ml Bag) 500 ml @ 500 mls/hr 1X ONCE IV Last administered on 12/29/16 10:50; Start 12/29/16 at 10:30; Stop at 11:29; Status DC Aspirin (Children'S Aspirin) 324 mg 1X ONCE PO Last administered on 12/29/16 10:55; Start 12/29/16 at 10:45; Stop 12/29/16 at 10:46; Status DC Fentanyl Citrate (Fentanyl 2ml Vial) 50 mcg PRN Q3HRS PRN IV SEVERE PAIN Last administered on 12/29/16 15:03; Start 12/29/16 at 14:45 Fentanyl Citrate (Fentanyl 2ml Vial) 25 mcg PRN Q3HRS PRN IV MILD PAIN Last administered on 12/29/16 18:36; Start 12/29/16 at 14:45 Digoxin (Lanoxin) 125 mcg 1X ONCE IV ; Start 12/30/16 at 10:15; Stop 12/30/16 at 10:36; Status DC Digoxin (Lanoxin) 125 mcg QODAY PO ; Start 01/01/17 at 09:00 Active Scripts Active Ceftriaxone 1 Gm Piggyback (Ceftriaxone Na/Dextrose,Iso) 1 Gm/50 Ml Froz.piggy 1 Gm IV DAILY 5 Days Coumadin (Warfarin Sodium) 3 Mg Tablet 3 Mg PO DAILY16 30 Days Aldactone (Spironolactone) 25 Mg Tablet 25 Mg PO DAILY 30 Days Lisinopril 10 Mg Tablet 10 Mg PO DAILY 30 Days Reported Digoxin 125 Mcg Tablet 1 Tab PO DAILY Tussin Dm Cough & Chest Syrup (Guaifenesin/Dextromethorphan) 118 Ml Syrup 10 Ml PO Q4HRS Rulox Suspension (Mag Hydrox/Al Hydrox/Simeth) 355 Ml Oral.susp 30 Ml PO PRN Q2HR PRN NITROGLYCERIN SubLingual (Nitroglycerin) 0.4 Mg Tab.subl 0.4 Mg SL PRN Q5MIN PRN Milk Of Magnesia (Magnesium Hydroxide) 400 Mg/5 Ml Oral.susp 30 Ml PO DAILY PRN Bisacodyl 10 Mg Supp.rect 10 Mg RC PRN DAILY PRN Acetaminophen Supp (Acetaminophen) 650 Mg Supp.rect 650 Mg RC Q4HRS Vitamin D3 (Cholecalciferol (Vitamin D3)) 400 Unit Tablet 400 Unit PO DAILY Sertraline Hcl 50 Mg Tablet 50 Mg PO DAILY Fish Oil 1,000 Mg Capsule ([place]-3 Fatty Acids/Fish Oil) 1 Each Capsule 1 Cap PO DAILY Remeron (Mirtazapine) 15 Mg Tablet 15 Mg PO DAILY Namenda (Memantine Hcl) 10 Mg Tablet 10 Mg PO BID Citracal + D Maximum Caplet (Calcium Citrate/Vitamin D3) 1 Each Tablet 1 Each PO BID 0800 AND 1700 Folic Acid 1 Mg Tablet 1 Mg PO DAILY Vitals/I & O Vital Sign - Last 24 Hours 12/29/16 12/29/16 12/29/16 12/29/16 15:00 15:03 15:33 16:20 Temp 97.1 97.1 Pulse 74 Resp 16 14 16 16 B/P 113/54 Pulse Ox 100 100 100 100 O2 Delivery Room Air Room Air Room Air Room Air 12/29/16 12/29/16 12/29/16 12/29/16 18:36 19:00 20:00 23:00 Temp 98.1 97.4 98.1 97.4 Pulse 105 104 Resp 16 18 30 B/P 135/82 100/69 Pulse Ox 98 96 98 O2 Delivery Room Air Room Air Room Air Room Air 12/30/16 12/30/16 12/30/16 12/30/16 03:00 07:00 09:00 10:00 Temp 98.4 97.6 98.4 97.6 Pulse 111 138 142 116 B/P 118/68 138/78 106/73 103/57 Pulse Ox 99 96 96 94 O2 Delivery Simple Mask Room Air Room Air Room Air O2 Flow Rate 2.0 12/30/16 12/30/16 11:00 12:00 Temp 97.8 97.8 Pulse 108 114 B/P 122/70 91/62 Pulse Ox 94 95 O2 Delivery Room Air Room Air Intake and Output 12/29/16 12/29/16 12/30/16 15:00 23:00 07:00 Intake Total 510 ml 1700 ml Balance 510 ml 1700 ml DA BALES MD Dec 30, 2016 13:03
--- NOTE | 2016-12-30 18:21 | CONS ---
DATE OF CONSULTATION: 12/29/2016 REFERRING PROVIDER: Dr. Sampson. CONSULTING PROVIDER: Bladimir Castelan MD. REASON FOR CONSULTATION: Left distal clavicle fracture. CHIEF COMPLAINT: The patient denies any chief complaint. HISTORY OF PRESENT ILLNESS: The patient is an 86-year-old confused female who presented for altered mental status after being found down at a [facility]. It is unclear as to how long she had been down. She was brought into our facility by EMS. She denies any complaint right now. Due to her confusion it is difficult to obtain a reliable history. PAST MEDICAL HISTORY: History of osteoporosis, pacemaker implantation, mitral valve replacement, AFib, coronary artery disease, heart failure, dementia, depression, GERD, hypercholesterolemia, history of renal disease. ALLERGIES: 1. Bactrim 2. Zolpidem. MEDICATIONS: Reviewed, please see MRAD. SOCIAL HISTORY: Lives in a facility. REVIEW OF SYSTEMS: Unobtainable reliably secondary to mental status. FAMILY HISTORY: Noncontributory. PHYSICAL EXAMINATION: GENERAL: The patient is alert to person, but not oriented to place or time. Her speech is clear. She does follow simple commands. HEENT: Head normocephalic, atraumatic. Extraocular muscles are intact. CARDIOVASCULAR: irregular rate and a radial pulse. No edema in her lower extremities. LUNGS: Respirations are unlabored with symmetric chest rise. ABDOMEN: Soft, nondistended. EXTREMITIES: Examination of her bilateral upper extremities reveals motor and sensation intact to median, radial, and ulnar nerves. She has a large amount of ecchymosis that appears couple of weeks old around her entire left shoulder girdle tracking distally to her elbow. She does flex and extend her elbow without any grimace or pain. No gross deformity in her left hand, wrist or, elbow. She does have a fullness about her left shoulder. She does have some tenderness globally around her shoulder. She is hesitant to move her shoulder. IMAGING: X-rays are reviewed, reveal a distal clavicle fracture. Elbow x-ray reviewed, no bony abnormalities. I interpreted these studies as well as reviewed the reports. IMPRESSION: Closed left distal clavicle fracture. PLAN: I think this injury is at least a couple of weeks old. From my standpoint, I would recommend a sling or immobilizer for patient comfort. She can use the arm as tolerated. Once her mental status improves, we will get her started on some gentle rehabilitation. She should be allowed to use the arm for ADLs at her comfortable level. Thank you for asking me to see this patient. BLADIMIR CASTELAN MD DR: WILIAM/patsy JOB#: [id number] / [id number] JANICE
--- NOTE | 2016-12-30 18:30 | HP ---
ADMIT DATE: 12/29/2016 CHIEF COMPLAINT AND HISTORY OF PRESENT ILLNESS: This is an 86-year-old female who is a patient of Dr. Sampson whom I will be following during her first few days of hospitalization. The patient presented to the Emergency Room on the date of admission with complaints of a possible syncopal episode. The nursing staff reported that they found the patient lying on the floor and they were unsure how long the patient had been lying there, possibly up to 6 hours. The patient was placed in a C-collar prior to arrival in the ER. The patient denied any head or neck pain to the ER physician. She also denied any chest pain, shortness of breath, cough, fevers or chills. Upon examination in the ER, the patient was found to be in AFib with an RVR with pulse rate in 120s. A chest x-ray and neck and head CT were obtained and were unremarkable for any new acute pathology. Shoulder films showed a subacute/acute distal clavicle fracture on the left. Forearm plain films on the left arm showed no acute fracture. The patient does have underlying dementia; however, nursing staff at the correction stated increased altered mental status. The patient was admitted to the hospital for further evaluation and treatment. PAST MEDICAL HISTORY: AFib, CAD, CHF, dementia, depression, GERD, dyslipidemia, heart disease, hypertension, NC, renal disease, UTI, endocarditis and osteoporosis. PAST SURGICAL HISTORY: Pacemaker placement, mitral valve replacement, pacemaker removed, skin cancer removal. MEDICATIONS: Medications are brought with the patient, listed on the computer and have been addressed. ALLERGIES: The patient is allergic to beta-blockers, calcium channel blockers, sulfamethoxazole, trimethoprim and zolpidem. SOCIAL HISTORY: The patient is a resident in the correction. She is a nonsmoker, nondrinker and does not use illicit drugs. REVIEW OF SYSTEMS: As mentioned above. PHYSICAL EXAMINATION: GENERAL: She is a thin, well-developed and well-nourished elderly female who is in no apparent distress upon the morning of my examination. VITAL SIGNS: Stable. She is afebrile. Heart rate is in the 115 on a Cardizem drip. HEENT: Head, eyes, ears, nose and throat are unremarkable. NECK: Supple, without adenopathy or thyromegaly. CHEST: Clear to auscultation. Respirations even and unlabored. The patient is on room air, maintaining sats greater than 92%. HEART: The patient is in AFib, rate is in 115 on a Cardizem drip. ABDOMEN: Soft, nontender and without hepatosplenomegaly or mass. EXTREMITIES: There is significant bruising to the left upper extremity. The patient is in a left arm sling secondary to the clavicle fracture. NEUROLOGIC: The patient is oriented to person only. IMPRESSION: 1. AFib with RVR. 2. Mechanical fall with subsequent left clavicle fracture. PLAN: The patient has been admitted. Cardiology has been consulted as well as Orthopedics. We will continue to monitor, manage and treat the patient appropriately throughout her hospitalization. DA BALES MD DR: ANNY/nts JOB#: [id number] / [id number]
[2016-12-30 18:50] LABS: INR 1.9 (0.8-1.1); PROTHROMBIN TIME PATIENT 20.7 SEC (11.7-14.0)
--- NOTE | 2016-12-30 22:03 | ACF ---
Admission Forms Criteria Admission Criteria Met?: LISA Lacey Dec 30, 2016 22:03 MC GLASS MD Dec 31, 2016 18:10
[2016-12-31 03:20] VITALS: BP 173/62
[2016-12-31 07:30] VITALS: BP 116/69
[2016-12-31] MEDS ORDERED: METOPROLOL TARTRATE 5 MG/5 ML VIAL. IVP ONE (08:15)
[2016-12-31] MEDS ORDERED: MAGNESIUM HYDROXIDE 2,400 MG/30 ML ORAL.SUSP. PO PRN (08:15)
[2016-12-31] MEDS ORDERED: NITROGLYCERIN SUBLINGUAL 0.4 MG BOTTLE OF 25. SL PRN (08:15)
[2016-12-31] MEDS ORDERED: BISACODYL 10 MG SUPP.RECT RC PRN (08:15)
[2016-12-31] MEDS: CALCIUM CARB/VIT D3 500/200 TABLET PO SCH ×2 (08:30→17:10)
[2016-12-31] MEDS: FOLIC ACID 1 MG TABLET PO SCH (08:38)
[2016-12-31] MEDS: OMEGA-3 FATTY ACIDS/FISH OIL 1,000 MG CAPSULE. PO SCH (08:38)
[2016-12-31] MEDS: SERTRALINE 50 MG TABLET. PO SCH (08:38)
[2016-12-31] MEDS: MEMANTINE 10 MG TABLET. PO SCH ×4 (08:38→22:18)
[2016-12-31] MEDS: MIRTAZAPINE 15 MG TABLET PO SCH (08:38)
[2016-12-31] MEDS: LISINOPRIL 10 MG TABLET PO SCH (08:41)
--- NOTE | 2016-12-31 09:17 | PDOC ---
ORTHO PROGRESS NOTES Subjective She still isn't feeling very well. She has pain in her left shoulder. Her heart rate has been highly Vitals Vital Signs Date Time Temp Pulse Resp B/P Pulse Ox O2 Delivery O2 Flow Rate FiO2 12/31/16 08:41 124 116/69 12/31/16 07:30 98.3 21 94 Room Air 98.3 Labs Laboratory Tests Test 12/29/16 10:00 12/29/16 10:24 12/29/16 14:40 12/29/16 20:58 White Blood Count 9.9x10^3/uL (4.0-11.0) Red Blood Count 4.89x10^6/uL (3.50-5.40) Hemoglobin 13.5g/dL (12.0-15.5) Hematocrit 41.6% (36.0-47.0) Mean Corpuscular Volume 85fL (79-100) Mean Corpuscular Hemoglobin 28pg (25-35) Mean Corpuscular Hemoglobin Concent 33g/dL (31-37) Red Cell Distribution Width 16.0% (11.5-14.5) Platelet Count 252x10^3/uL (140-400) Neutrophils (%) (Auto) 79% (31-73) Lymphocytes (%) (Auto) 10% (24-48) Monocytes (%) (Auto) 10% (0-9) Eosinophils (%) (Auto) 1% (0-3) Basophils (%) (Auto) 0% (0-3) Neutrophils # (Auto) 7.8x10^3uL (1.8-7.7) Lymphocytes # (Auto) 1.0x10^3/uL (1.0-4.8) Monocytes # (Auto) 1.0x10^3/uL (0.0-1.1) Eosinophils # (Auto) 0.1x10^3/uL (0.0-0.7) Basophils # (Auto) 0.0x10^3/uL (0.0-0.2) Sodium Level 140mmol/L (136-145) Potassium Level 4.5mmol/L (3.5-5.1) Chloride Level 101mmol/L (98-107) Carbon Dioxide Level 29mmol/L (21-32) Anion Gap 10 (6-14) Blood Urea Nitrogen 42mg/dL (7-20) Creatinine 1.3mg/dL (0.6-1.0) Estimated GFR (Cockcroft-Gault) 39.0 Glucose Level 114mg/dL (70-99) Calcium Level 9.9mg/dL (8.5-10.1) Total Bilirubin 0.9mg/dL (0.2-1.0) Direct Bilirubin 0.2mg/dL (0.0-0.2) Aspartate Amino Transf (AST/SGOT) 46U/L (15-37) Alanine Aminotransferase (ALT/SGPT) 33U/L (14-59) Alkaline Phosphatase 116U/L (46-116) Creatine Kinase 263U/L (26-192) Troponin I Quantitative 0.307ng/mL (0.000-0.055) 0.285ng/mL (0.000-0.055) 0.277ng/mL (0.000-0.055) RS-Eqr-A-Type Natriuretic Peptide 2775pg/mL (0-449) Total Protein 9.2g/dL (6.4-8.2) Albumin 3.9g/dL (3.4-5.0) Lipase 630U/L (73-393) Urine Collection Type Void Urine Color Yellow Urine Clarity Clear Urine pH 6.5 Urine Specific [place] 1.010 Urine Protein Negativemg/dL (NEG-TRACE) Urine Glucose (UA) Negativemg/dL (NEG) Urine Ketones (Stick) Negativemg/dL (NEG) Urine Blood Negative (NEG) Urine Nitrite Negative (NEG) Urine Bilirubin Negative (NEG) Urine Urobilinogen Dipstick 1.0mg/dL (0.2 mg/dL) Urine Leukocyte Esterase Negative (NEG) Urine RBC 0/HPF (0-2) Urine WBC Occ/HPF (0-4) Urine Squamous Epithelial Cells Few/LPF Urine Bacteria Few/HPF (0-FEW) Test 12/30/16 04:55 12/30/16 18:30 White Blood Count 8.6x10^3/uL (4.0-11.0) Red Blood Count 4.14x10^6/uL (3.50-5.40) Hemoglobin 11.7g/dL (12.0-15.5) Hematocrit 35.2% (36.0-47.0) Mean Corpuscular Volume 85fL (79-100) Mean Corpuscular Hemoglobin 28pg (25-35) Mean Corpuscular Hemoglobin Concent 33g/dL (31-37) Red Cell Distribution Width 16.3% (11.5-14.5) Platelet Count 217x10^3/uL (140-400) Neutrophils (%) (Auto) 70% (31-73) Lymphocytes (%) (Auto) 16% (24-48) Monocytes (%) (Auto) 10% (0-9) Eosinophils (%) (Auto) 4% (0-3) Basophils (%) (Auto) 1% (0-3) Neutrophils # (Auto) 6.1x10^3uL (1.8-7.7) Lymphocytes # (Auto) 1.3x10^3/uL (1.0-4.8) Monocytes # (Auto) 0.8x10^3/uL (0.0-1.1) Eosinophils # (Auto) 0.3x10^3/uL (0.0-0.7) Basophils # (Auto) 0.1x10^3/uL (0.0-0.2) Sodium Level 140mmol/L (136-145) Potassium Level 4.4mmol/L (3.5-5.1) Chloride Level 107mmol/L (98-107) Carbon Dioxide Level 27mmol/L (21-32) Anion Gap 6 (6-14) Blood Urea Nitrogen 40mg/dL (7-20) Creatinine 1.3mg/dL (0.6-1.0) Estimated GFR (Cockcroft-Gault) 39.0 Glucose Level 91mg/dL (70-99) Calcium Level 8.1mg/dL (8.5-10.1) Prothrombin Time 20.7SEC (11.7-14.0) Prothromb Time International Ratio 1.9 (0.8-1.1) Laboratory Tests Test 12/30/16 18:30 Prothrombin Time 20.7SEC (11.7-14.0) Prothromb Time International Ratio 1.9 (0.8-1.1) Notes She is awake and alert. She follows simple commands. She answers simple questions. Examination of her left upper extremity reveals motor and sensation are intact median, radial, and ulnar nerves. She has a large amount of ecchymosis around her left shoulder girdle. She is tender around her distal clavicle. Assessment and Plan She should use a sling for comfort. She can begin some simple physical therapy consisting of pendulums and active assisted range of motion as tolerated. She should follow up with me in 1-2 weeks. I did discuss this with her daughter. SIMONE CASTELAN II, MD Dec 31, 2016 09:17
--- NOTE | 2016-12-31 09:45 | PDOC ---
SUBJECTIVE Subjective resting comfortably, recognized my name, state pain controlled OBJECTIVE Vital Signs Vital Signs Date Time Temp Pulse Resp B/P Pulse Ox O2 Delivery O2 Flow Rate FiO2 12/31/16 08:41 124 116/69 12/31/16 08:41 124 116/69 12/31/16 08:02 Room Air 12/31/16 07:30 98.3 113 21 116/69 94 Room Air 98.3 12/31/16 03:20 98.2 115 16 173/62 95 Room Air 98.2 12/30/16 22:40 98.1 105 18 157/59 93 Room Air 98.1 12/30/16 20:45 98.4 117 20 127/85 93 Room Air 98.4 12/30/16 20:00 Room Air 12/30/16 19:56 142 147/80 12/30/16 15:00 97.8 112 96/55 95 Room Air 97.8 12/30/16 12:00 97.8 114 91/62 95 Room Air 97.8 12/30/16 11:00 108 122/70 94 Room Air 12/30/16 10:00 116 103/57 94 Room Air I & O Intake and Output 12/31/16 07:00 Intake Total 1185 ml Balance 1185 ml Intake Oral 1160 ml IV Total 25 ml # Voids 10 PHYSICAL EXAM Physical Exam HR still up off drip ASSESSMENT/PLAN Assessment/Plan 1. Afib with RVR -Cardiology consulted continue rate controlling meds , weaning cardiazem drip 2. Mechanical fall with fx of left clavicle -CT head and neck negative -x-ray left forearm negative -Ortho consulted 3. ARF -Creat 1.3 -following lab 4. Underlying dementia 5. chronic anticoagulation continue coumadin INR today 1.9 subtherapeutic 6- physical thx Problems: COMMENT Lab Laboratory Tests Test 12/30/16 18:30 Prothrombin Time 20.7SEC (11.7-14.0) Prothromb Time International Ratio 1.9 (0.8-1.1) AARON SOLORIO MD Dec 31, 2016 09:45
[2016-12-31 11:53] VITALS: BP 160/84
--- NOTE | 2016-12-31 11:56 | PDOC ---
CARDIO Progress Notes Date and Time Date of Service 12/31/2016 Time of Evaluation 1151 Subjective Subjective: Other (mumbling & confused) Vitals Vitals Vital Signs Date Time Temp Pulse Resp B/P Pulse Ox O2 Delivery O2 Flow Rate FiO2 12/31/16 08:41 124 116/69 12/31/16 08:02 Room Air 12/31/16 07:30 98.3 21 94 98.3 Weight Weight [ ] Input and Output Intake and Output Intake and Output 12/31/16 07:00 Intake Total 1185 ml Balance 1185 ml Intake Oral 1160 ml IV Total 25 ml # Voids 10 Laboratory Labs Laboratory Tests Test 12/30/16 18:30 12/31/16 09:45 Prothrombin Time 20.7SEC (11.7-14.0) Prothromb Time International Ratio 1.9 (0.8-1.1) Magnesium Level 1.8mg/dL (1.8-2.4) Physical Exam HEENT: Neck Supple W Full Motion Chest: Symmetric LUNGS: Other (decreased anteriorly) Heart: irregularly irregular Abdomen: Soft N/T Extremities: No Edema Neurology: confused Assessment Assessment 1. atrial fib, chronic RVR likely due to pain/injury - recommend controlling pain would not use diltiazem or beta-blockers given history of 9 second pause with these - dilt gtt stopped yesterday previous PPM thought to be implanted for SSS; explanted for presumed infection ` DPOA (son) declined PPM implantation during 2 prior hospitalizations rate control with digoxin QOD due to CKD and may need to only given every 72 hours - monitor 2. mechanical MVR with chronic OAC INR subtherapeutic 3. chronic diastolic HF LVEF mildly depressed @ 45-50% continue medical management & control BP with meds 4. elevated troponin levels likely demand mediated and in the setting of CKD MPI 08/2016 was low to intermediate risk - given her dementia - not a candidate for aggressive evaluation/dementia 5. left clavicular fracture per primary/ortho recommend pain management to assist in controlling heart rate VISHAL MENCHACA APRN Dec 31, 2016 11:56
[2016-12-31] MEDS: ACETAMINOPHEN 650 MG SUPP.RECT. RC SCH ×2 (12:00→16:00)
[2016-12-31 15:45] VITALS: BP 135/68
[2016-12-31] MEDS: WARFARIN 3 MG TABLET. PO SCH (17:10)
[2016-12-31] MEDS: ACETAMINOPHEN 325 MG TABLET. PO PRN (17:10)
[2016-12-31 19:30] VITALS: BP 156/87
[2016-12-31 22:48] VITALS: BP 124/68
[2017-01-01 03:30] VITALS: BP 140/83
[2017-01-01 04:14] LABS: HEMATOCRIT 38.8 % (36.0-47.0); HEMOGLOBIN 12.4 g/dL (12.0-15.5); RED BLOOD COUNT 4.43 x10^6/uL (3.50-5.40); RED CELL DISTRIBUTION WIDTH 15.8 % (11.5-14.5); WHITE BLOOD COUNT 8.2 x10^3/uL (4.0-11.0)
[2017-01-01 04:16] LABS: CALCIUM 9.7 mg/dL (8.5-10.1); CREATININE 1.2 mg/dL (0.6-1.0); GFR 42.8
[2017-01-01 07:00] VITALS: BP 121/75
[2017-01-01] MEDS: ACETAMINOPHEN 325 MG TABLET. PO PRN ×2 (09:06→21:01)
[2017-01-01] MEDS: OMEGA-3 FATTY ACIDS/FISH OIL 1,000 MG CAPSULE. PO SCH (09:07)
[2017-01-01] MEDS: MEMANTINE 10 MG TABLET. PO SCH ×2 (09:07→21:01)
[2017-01-01] MEDS: DIGOXIN 125 MCG TABLET PO SCH (09:08)
[2017-01-01] MEDS: MIRTAZAPINE 15 MG TABLET PO SCH (09:08)
[2017-01-01] MEDS: LISINOPRIL 10 MG TABLET PO SCH (09:08)
[2017-01-01] MEDS: SERTRALINE 50 MG TABLET. PO SCH (09:09)
[2017-01-01] MEDS: FOLIC ACID 1 MG TABLET PO SCH (09:09)
[2017-01-01] MEDS: CALCIUM CARB/VIT D3 500/200 TABLET PO SCH ×2 (09:09→17:35)
--- NOTE | 2017-01-01 10:06 | PDOC ---
SUBJECTIVE Subjective HR up again 130- 160 pt refused medication by mouth yesterday OBJECTIVE Vital Signs Vital Signs Date Time Temp Pulse Resp B/P Pulse Ox O2 Delivery O2 Flow Rate FiO2 01/01/17 09:08 143 121/75 01/01/17 09:08 143 121/75 01/01/17 07:19 Room Air 01/01/17 07:00 98.1 90 18 121/75 96 Room Air 98.1 01/01/17 03:30 97.3 103 14 140/83 97 Room Air 97.3 12/31/16 22:48 97.2 98 16 124/68 95 Room Air 97.2 12/31/16 20:00 Room Air 12/31/16 19:30 98.4 114 16 156/87 93 Room Air 98.4 12/31/16 15:45 98.3 114 20 135/68 97 Room Air 98.3 12/31/16 11:53 98.2 110 20 160/84 96 Room Air 98.2 I & O Intake and Output 01/01/17 07:00 # Voids 7 PHYSICAL EXAM Physical Exam heart Irreg, tachy abd soft lungs decrease BS ext no edema ASSESSMENT/PLAN Assessment/Plan 1. Afib with RVR -she refused medication P.O yesterday long discussion with pt and daughter 2. Mechanical fall with fx of left clavicle -CT head and neck negative -x-ray left forearm negative -pain well controlled at present time 3. ARF -following lab 4. Underlying dementia 5. chronic anticoagulation continue coumadin INR today 1.9 subtherapeutic continue coumadin plan to [facility] when rate is controlled Problems: COMMENT Lab Laboratory Tests Test 01/01/17 03:43 White Blood Count 8.2x10^3/uL (4.0-11.0) Red Blood Count 4.43x10^6/uL (3.50-5.40) Hemoglobin 12.4g/dL (12.0-15.5) Hematocrit 38.8% (36.0-47.0) Mean Corpuscular Volume 88fL (79-100) Mean Corpuscular Hemoglobin 28pg (25-35) Mean Corpuscular Hemoglobin Concent 32g/dL (31-37) Red Cell Distribution Width 15.8% (11.5-14.5) Platelet Count 231x10^3/uL (140-400) Sodium Level 132mmol/L (136-145) Potassium Level 4.0mmol/L (3.5-5.1) Chloride Level 100mmol/L (98-107) Carbon Dioxide Level 27mmol/L (21-32) Anion Gap 5 (6-14) Blood Urea Nitrogen 38mg/dL (7-20) Creatinine 1.2mg/dL (0.6-1.0) Estimated GFR (Cockcroft-Gault) 42.8 Glucose Level 80mg/dL (70-99) Calcium Level 9.7mg/dL (8.5-10.1) AARON SOLORIO MD Jan 01, 2017 10:06
--- NOTE | 2017-01-01 10:50 | PDOC ---
LEANNSALVADORSHIRA J EMPLOYEE'S REPRESENTATIVE 01/01/17 1050: ORTHO PROGRESS NOTES Subjective Patient is more alert today but still not oriented. RN reports that she is doing better, and does not appear to be in a lot of pain. Pain adequately treated with tylenol. Vitals Vital Signs Date Time Temp Pulse Resp B/P Pulse Ox O2 Delivery O2 Flow Rate FiO2 01/01/17 09:08 143 121/75 01/01/17 07:19 Room Air 01/01/17 07:00 98.1 18 96 98.1 Labs Laboratory Tests Test 12/30/16 18:30 12/31/16 09:45 01/01/17 03:43 Prothrombin Time 20.7SEC (11.7-14.0) Prothromb Time International Ratio 1.9 (0.8-1.1) Magnesium Level 1.8mg/dL (1.8-2.4) White Blood Count 8.2x10^3/uL (4.0-11.0) Red Blood Count 4.43x10^6/uL (3.50-5.40) Hemoglobin 12.4g/dL (12.0-15.5) Hematocrit 38.8% (36.0-47.0) Mean Corpuscular Volume 88fL (79-100) Mean Corpuscular Hemoglobin 28pg (25-35) Mean Corpuscular Hemoglobin Concent 32g/dL (31-37) Red Cell Distribution Width 15.8% (11.5-14.5) Platelet Count 231x10^3/uL (140-400) Sodium Level 132mmol/L (136-145) Potassium Level 4.0mmol/L (3.5-5.1) Chloride Level 100mmol/L (98-107) Carbon Dioxide Level 27mmol/L (21-32) Anion Gap 5 (6-14) Blood Urea Nitrogen 38mg/dL (7-20) Creatinine 1.2mg/dL (0.6-1.0) Estimated GFR (Cockcroft-Gault) 42.8 Glucose Level 80mg/dL (70-99) Calcium Level 9.7mg/dL (8.5-10.1) Laboratory Tests Test 01/01/17 03:43 White Blood Count 8.2x10^3/uL (4.0-11.0) Red Blood Count 4.43x10^6/uL (3.50-5.40) Hemoglobin 12.4g/dL (12.0-15.5) Hematocrit 38.8% (36.0-47.0) Mean Corpuscular Volume 88fL (79-100) Mean Corpuscular Hemoglobin 28pg (25-35) Mean Corpuscular Hemoglobin Concent 32g/dL (31-37) Red Cell Distribution Width 15.8% (11.5-14.5) Platelet Count 231x10^3/uL (140-400) Sodium Level 132mmol/L (136-145) Potassium Level 4.0mmol/L (3.5-5.1) Chloride Level 100mmol/L (98-107) Carbon Dioxide Level 27mmol/L (21-32) Anion Gap 5 (6-14) Blood Urea Nitrogen 38mg/dL (7-20) Creatinine 1.2mg/dL (0.6-1.0) Estimated GFR (Cockcroft-Gault) 42.8 Glucose Level 80mg/dL (70-99) Calcium Level 9.7mg/dL (8.5-10.1) Notes Patient is sleepy, but arousable to voice and touch. Not oriented. Follows simple commands. mild tenderness at left distal clavicle. NV intact LUE. some scattered bruising noted. Problems: (1) Closed left clavicular fracture Assessment and Plan NWB to the LUE, ok to use for ADLs Sling for support and comfort. Ok to DC from ortho standpoint when medically stable Follow up in two weeks with SIMONE Zarco II, MD 01/02/17 0858: Problem Qualifiers (1) Closed left clavicular fracture: Encounter type: subsequent encounter Clavicle location: lateral end Fracture alignment: displaced Fracture healing: with routine healing Qualified Code: S42.032D - Displaced fracture of lateral end of left clavicle, subsequent encounter for fracture with routine healing SHIRA FERNANDES APRN Jan 01, 2017 10:50 SIMONE CASTELAN II, MD Jan 02, 2017 08:58
[2017-01-01 11:00] VITALS: BP 108/67
[2017-01-01 15:20] VITALS: BP 126/53
--- NOTE | 2017-01-01 15:43 | PDOC ---
CARDIO Progress Notes Date and Time Date of Service 01/01/17 Time of Evaluation 1345 Subjective Subjective: Other (confused, resting comfortably in bed) Vitals Vitals Vital Signs Date Time Temp Pulse Resp B/P Pulse Ox O2 Delivery O2 Flow Rate FiO2 01/01/17 11:00 97.2 127 16 108/67 96 Room Air 97.2 Weight Weight [ ] Input and Output Intake and Output Intake and Output 01/01/17 07:00 # Voids 7 Laboratory Labs Laboratory Tests Test 01/01/17 03:43 01/01/17 11:27 White Blood Count 8.2x10^3/uL (4.0-11.0) Red Blood Count 4.43x10^6/uL (3.50-5.40) Hemoglobin 12.4g/dL (12.0-15.5) Hematocrit 38.8% (36.0-47.0) Mean Corpuscular Volume 88fL (79-100) Mean Corpuscular Hemoglobin 28pg (25-35) Mean Corpuscular Hemoglobin Concent 32g/dL (31-37) Red Cell Distribution Width 15.8% (11.5-14.5) Platelet Count 231x10^3/uL (140-400) Sodium Level 132mmol/L (136-145) Potassium Level 4.0mmol/L (3.5-5.1) Chloride Level 100mmol/L (98-107) Carbon Dioxide Level 27mmol/L (21-32) Anion Gap 5 (6-14) Blood Urea Nitrogen 38mg/dL (7-20) Creatinine 1.2mg/dL (0.6-1.0) Estimated GFR (Cockcroft-Gault) 42.8 Glucose Level 80mg/dL (70-99) Calcium Level 9.7mg/dL (8.5-10.1) Glucose (Fingerstick) 144mg/dL (70-99) Physical Exam HEENT: Neck Supple W Full Motion Chest: Symmetric LUNGS: Other (diminished bases ) Heart: irregularly irregular Abdomen: Soft N/T Extremities: No Edema, No Calf Tenderness Neurology: alert, confused Assessment Assessment 1. atrial fib, chronic RVR likely due to pain/injury rate presently controlled on digoxin. caution additional rate controlling agents due to h/o 9 sec pause. previous PPM explanted due to infx; DPOA declined re-implantation continue supportive care. okay to discharge to when able. 2. mechanical MVR with chronic OAC check INR 3. chronic diastolic HF LVEF mildly depressed @ 45-50% continue medical management 4. elevated troponin levels likely demand mediated and in the setting of CKD MPI 08/2016 was low to intermediate risk - given her dementia - not a candidate for aggressive cardiac evaluation given age, dementia, and debility 5. left clavicular fracture adequate pain management to assist in controlling heart rate ANATOLIY MAURER APRN Jan 01, 2017 15:43
[2017-01-01] MEDS: WARFARIN 3 MG TABLET. PO SCH (16:00)
[2017-01-01 16:04] LABS: INR 1.5 (0.8-1.1); PROTHROMBIN TIME PATIENT 17.1 SEC (11.7-14.0)
[2017-01-01] MEDS ORDERED: WARFARIN 10 MG TABLET. PO ONE (17:00)
[2017-01-01 19:00] VITALS: BP 145/67
[2017-01-01 23:00] VITALS: BP 130/72
[2017-01-02 03:00] VITALS: BP 132/80
[2017-01-02 05:56] LABS: HEMATOCRIT 37.4 % (36.0-47.0); HEMOGLOBIN 12.3 g/dL (12.0-15.5); RED BLOOD COUNT 4.41 x10^6/uL (3.50-5.40); WHITE BLOOD COUNT 9.2 x10^3/uL (4.0-11.0)
[2017-01-02 06:13] LABS: INR 2.3 (0.8-1.1); PROTHROMBIN TIME PATIENT 24.1 SEC (11.7-14.0)
[2017-01-02 06:14] LABS: CALCIUM 9.8 mg/dL (8.5-10.1); CREATININE 1.4 mg/dL (0.6-1.0); GFR 35.8; POTASSIUM 4.4 mmol/L (3.5-5.1)
[2017-01-02 08:20] VITALS: BP 110/63
[2017-01-02] MEDS: OMEGA-3 FATTY ACIDS/FISH OIL 1,000 MG CAPSULE. PO SCH (08:49)
[2017-01-02] MEDS: SERTRALINE 50 MG TABLET. PO SCH (08:49)
[2017-01-02] MEDS: CALCIUM CARB/VIT D3 500/200 TABLET PO SCH ×2 (08:49→19:30)
[2017-01-02] MEDS: MEMANTINE 10 MG TABLET. PO SCH ×3 (08:50→21:46)
[2017-01-02] MEDS: FOLIC ACID 1 MG TABLET PO SCH (08:50)
[2017-01-02] MEDS: LISINOPRIL 10 MG TABLET PO SCH (08:56)
[2017-01-02] MEDS: ACETAMINOPHEN 325 MG TABLET. PO PRN ×2 (08:57→21:46)
--- NOTE | 2017-01-02 09:34 | PDOC ---
ANATOLIY MAURER STUDIO HAND 01/02/17 0934: CARDIO Progress Notes Date and Time Date of Service 01/02/17 Time of Evaluation 0930 Subjective Subjective: Other (mild pain. feeling tired) Vitals Vitals Vital Signs Date Time Temp Pulse Resp B/P Pulse Ox O2 Delivery O2 Flow Rate FiO2 01/02/17 08:56 122 110/63 01/02/17 08:20 97.4 20 95 Room Air 97.4 Weight Weight [ ] Input and Output Intake and Output Intake and Output 01/02/17 07:00 Intake Total 120 ml Balance 120 ml Intake Oral 120 ml # Voids 3 # Bowel Movements 2 Laboratory Labs Laboratory Tests Test 01/01/17 11:27 01/01/17 16:58 01/02/17 04:51 01/02/17 04:57 Glucose (Fingerstick) 144mg/dL (70-99) 108mg/dL (70-99) Prothrombin Time 24.1SEC (11.7-14.0) Prothromb Time International Ratio 2.3 (0.8-1.1) White Blood Count 9.2x10^3/uL (4.0-11.0) Red Blood Count 4.41x10^6/uL (3.50-5.40) Hemoglobin 12.3g/dL (12.0-15.5) Hematocrit 37.4% (36.0-47.0) Mean Corpuscular Volume 85fL (79-100) Mean Corpuscular Hemoglobin 28pg (25-35) Mean Corpuscular Hemoglobin Concent 33g/dL (31-37) Red Cell Distribution Width 16.0% (11.5-14.5) Platelet Count 279x10^3/uL (140-400) Sodium Level 143mmol/L (136-145) Potassium Level 4.4mmol/L (3.5-5.1) Chloride Level 106mmol/L (98-107) Carbon Dioxide Level 26mmol/L (21-32) Anion Gap 11 (6-14) Blood Urea Nitrogen 51mg/dL (7-20) Creatinine 1.4mg/dL (0.6-1.0) Estimated GFR (Cockcroft-Gault) 35.8 Glucose Level 94mg/dL (70-99) Calcium Level 9.8mg/dL (8.5-10.1) Physical Exam HEENT: Neck Supple W Full Motion Chest: Symmetric LUNGS: Other (diminished bases ) Heart: irregularly irregular Abdomen: Soft N/T Extremities: No Edema, No Calf Tenderness Neurology: alert, confused Assessment Assessment 1. atrial fib, chronic RVR likely due to pain/injury rate sustained 120-140 at rest. Will add cardizem for better rate control ( on dig and Cardizem recent admission for rate control) will use with caution due to h/o 9 sec pause. previous PPM explanted due to infx; DPOA declined re-implantation continue supportive care. 2. mechanical MVR with chronic OAC INR 2.3 3. chronic diastolic HF LVEF mildly depressed @ 45-50% continue medical management 4. elevated troponin levels likely demand mediated and in the setting of CKD MPI 08/2016 was low to intermediate risk - given her dementia - not a candidate for aggressive cardiac evaluation given age, dementia, and debility 5. left clavicular fracture adequate pain management to assist in controlling heart rate LANETTE LÓPEZ MD 01/02/17 1727: CARDIO Progress Notes Assessment Assessment Patient seen and examined. Agree with TIP CEMENTER's assessment and plan. Agree with low -dose Cardizem for better rate control of atrial fibrillation. 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 Continue warfarin for mechanical MVR. ANATOLIY MAURER APRN Jan 02, 2017 09:34 LANETTE LÓPEZ MD Jan 02, 2017 17:27
[2017-01-02] MEDS: MIRTAZAPINE 15 MG TABLET PO SCH (09:56)
[2017-01-02 10:55] VITALS: BP 117/84
[2017-01-02] MEDS: DILTIAZEM HCL 30 MG TABLET PO SCH ×2 (12:42→19:34)
--- NOTE | 2017-01-02 14:35 | PDOC ---
SUBJECTIVE Subjective HR high,no pauses , OBJECTIVE Vital Signs Vital Signs Date Time Temp Pulse Resp B/P Pulse Ox O2 Delivery O2 Flow Rate FiO2 01/02/17 12:42 140 117/84 01/02/17 10:55 97.5 83 20 117/84 95 Room Air 97.5 01/02/17 08:56 122 110/63 01/02/17 08:20 97.4 133 20 110/63 95 Room Air 97.4 01/02/17 03:00 98.1 125 12 132/80 96 Room Air 98.1 01/01/17 23:00 98.3 104 18 130/72 94 Room Air 98.3 01/01/17 20:00 Room Air 01/01/17 19:00 98.5 128 22 145/67 94 Room Air 98.5 01/01/17 15:20 97.5 106 16 126/53 100 Room Air 97.5 I & O Intake and Output 01/02/17 07:00 Intake Total 120 ml Balance 120 ml Intake Oral 120 ml # Voids 3 # Bowel Movements 2 PHYSICAL EXAM Physical Exam pain controlled heart irreg and rapid abd soft ext no edema ASSESSMENT/PLAN Assessment/Plan 1. Afib with RVR state took meds today, no pace maker and hx of pause in the past 2. Mechanical fall with fx of left clavicle -CT head and neck negative -x-ray left forearm negative -pain well controlled at present time 3. ARF -start slow IVF and check renal sono 4. Underlying dementia 5. chronic anticoagulation due to valve replacement plan to [facility] when kidney function stabalize Problems: COMMENT Lab Laboratory Tests Test 01/01/17 16:58 01/02/17 04:51 01/02/17 04:57 Glucose (Fingerstick) 108mg/dL (70-99) Prothrombin Time 24.1SEC (11.7-14.0) Prothromb Time International Ratio 2.3 (0.8-1.1) White Blood Count 9.2x10^3/uL (4.0-11.0) Red Blood Count 4.41x10^6/uL (3.50-5.40) Hemoglobin 12.3g/dL (12.0-15.5) Hematocrit 37.4% (36.0-47.0) Mean Corpuscular Volume 85fL (79-100) Mean Corpuscular Hemoglobin 28pg (25-35) Mean Corpuscular Hemoglobin Concent 33g/dL (31-37) Red Cell Distribution Width 16.0% (11.5-14.5) Platelet Count 279x10^3/uL (140-400) Sodium Level 143mmol/L (136-145) Potassium Level 4.4mmol/L (3.5-5.1) Chloride Level 106mmol/L (98-107) Carbon Dioxide Level 26mmol/L (21-32) Anion Gap 11 (6-14) Blood Urea Nitrogen 51mg/dL (7-20) Creatinine 1.4mg/dL (0.6-1.0) Estimated GFR (Cockcroft-Gault) 35.8 Glucose Level 94mg/dL (70-99) Calcium Level 9.8mg/dL (8.5-10.1) AARON SOLORIO MD Jan 02, 2017 14:35
[2017-01-02 15:00] VITALS: BP 108/63
[2017-01-02] MEDS: POTASSIUM CL 20MEQ D5-0.45NACL 1,000 ML IV SCH (15:44)
[2017-01-02] MEDS: WARFARIN 3 MG TABLET. PO SCH (15:48)
[2017-01-02 19:35] VITALS: BP 175/92
[2017-01-02 23:19] VITALS: BP 152/78
[2017-01-03 03:55] VITALS: BP 168/89
[2017-01-03 05:24] LABS: HEMATOCRIT 36.3 % (36.0-47.0); HEMOGLOBIN 11.5 g/dL (12.0-15.5); RED BLOOD COUNT 4.15 x10^6/uL (3.50-5.40); RED CELL DISTRIBUTION WIDTH 16.1 % (11.5-14.5); WHITE BLOOD COUNT 9.4 x10^3/uL (4.0-11.0)
[2017-01-03 05:26] LABS: CALCIUM 9.7 mg/dL (8.5-10.1); CREATININE 1.4 mg/dL (0.6-1.0); GFR 35.8; POTASSIUM 4.3 mmol/L (3.5-5.1)
[2017-01-03 05:43] LABS: INR 3.6 (0.8-1.1); PROTHROMBIN TIME PATIENT 34.1 SEC (11.7-14.0)
[2017-01-03] MEDS: DILTIAZEM HCL 30 MG TABLET PO SCH ×2 (06:06)
[2017-01-03] MEDS: POTASSIUM CL 20MEQ D5-0.45NACL 1,000 ML IV SCH (06:07)
[2017-01-03 07:50] VITALS: BP 163/82
[2017-01-03] MEDS: FOLIC ACID 1 MG TABLET PO SCH (09:15)
[2017-01-03] MEDS: MIRTAZAPINE 15 MG TABLET PO SCH (09:15)
[2017-01-03] MEDS: MEMANTINE 10 MG TABLET. PO SCH (09:15)
[2017-01-03] MEDS: CALCIUM CARB/VIT D3 500/200 TABLET PO SCH (09:15)
[2017-01-03] MEDS: OMEGA-3 FATTY ACIDS/FISH OIL 1,000 MG CAPSULE. PO SCH (09:16)
[2017-01-03] MEDS: SERTRALINE 50 MG TABLET. PO SCH (09:16)
[2017-01-03] MEDS: DIGOXIN 125 MCG TABLET PO SCH (09:16)
--- NOTE | 2017-01-03 09:49 | RAD ---
Renal sonography Clinical indications: Worsening BUN/creatinine level. Findings: The longitudinal and AP and transverse dimensions of the right kidney are 10.2 cm and 4.4 cm and 4.4 cm respectively. The longitudinal and AP and transverse dimensions of the left kidney are 7.5 cm and 3.6 cm and 4.0 cm respectively. No hydronephrosis is seen on either side. There is cortical thinning of both kidneys worse on the left side. There is a small right renal cyst measuring 7 mm. Debris is present within the urinary bladder. Bilateral ureteral jets are seen. IMPRESSION: Left renal atrophy. No hydronephrosis. Debris within the urinary bladder. This could represent blood or pus.
[2017-01-03] MEDS ORDERED: DILT60TA PO (10:47)
[2017-01-03] MEDS ORDERED: HYDR30CR61 TP (10:48)
--- NOTE | 2017-01-03 10:49 | PDOC ---
SUBJECTIVE Subjective Her hemorrhoids are acting up she has had that in the past, and that does respond very well to anusol cream, she is a still confused and not able to take care of herself she is not appropriate for assisted living she will need to be in a [facility] and possibly shelter placement, her heart rate is still elevated and her blood pressure is high OBJECTIVE Vital Signs Vital Signs Date Time Temp Pulse Resp B/P Pulse Ox O2 Delivery O2 Flow Rate FiO2 01/03/17 09:16 105 163/82 01/03/17 07:50 97.8 105 16 163/82 95 Room Air 97.8 01/03/17 06:06 131 168/69 01/03/17 03:55 97.7 103 18 168/89 98 Room Air 97.7 01/02/17 23:19 98.4 95 16 152/78 94 Room Air 98.4 01/02/17 20:00 Room Air 01/02/17 19:35 97.5 96 18 175/92 96 Room Air 97.5 01/02/17 19:34 106 175/92 01/02/17 15:00 97.5 58 18 108/63 99 Room Air 97.5 01/02/17 12:42 140 117/84 01/02/17 10:55 97.5 83 20 117/84 95 Room Air 97.5 I & O Intake and Output 01/03/17 07:00 Intake Total 100 ml Balance 100 ml Intake Oral 0 ml IV Total 100 ml # Voids 4 PHYSICAL EXAM Physical Exam Heart is irregularly irregular with tachycardia Lungs with decreased breath sounds Abdomen soft and nontender Extremities no edema ASSESSMENT/PLAN Assessment/Plan Her blood pressure has been much higher today, and her heart rate continues to be high in the 130-140 , she still does have slow downs at times and slowest was 58 yesterday but she has not had any recent pauses, before this admission patient was on Cardizem CD 360 mg daily without having the pacemaker, I feel that it would be okay to increase her Cardizem to 60 mg every 6 hours that's a total of 240 mg which is less than what she has been taken before that this admission to help control the rate and her blood pressure, 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 in the past, but her rate is very high that she will soon go into congestive heart failure if not controlled , therefore we will go ahead and increase her Cardizem dose, and continue supportive care which is the patient desire, her hemorrhoids are bothering her at this point and she will get treatment for that, will transfer to [facility] and or shelter when bed is available Problems: COMMENT Lab Laboratory Tests Test 01/03/17 04:20 White Blood Count 9.4x10^3/uL (4.0-11.0) Red Blood Count 4.15x10^6/uL (3.50-5.40) Hemoglobin 11.5g/dL (12.0-15.5) Hematocrit 36.3% (36.0-47.0) Mean Corpuscular Volume 87fL (79-100) Mean Corpuscular Hemoglobin 28pg (25-35) Mean Corpuscular Hemoglobin Concent 32g/dL (31-37) Red Cell Distribution Width 16.1% (11.5-14.5) Platelet Count 266x10^3/uL (140-400) Prothrombin Time 34.1SEC (11.7-14.0) Prothromb Time International Ratio 3.6 (0.8-1.1) Sodium Level 140mmol/L (136-145) Potassium Level 4.3mmol/L (3.5-5.1) Chloride Level 106mmol/L (98-107) Carbon Dioxide Level 27mmol/L (21-32) Anion Gap 7 (6-14) Blood Urea Nitrogen 53mg/dL (7-20) Creatinine 1.4mg/dL (0.6-1.0) Estimated GFR (Cockcroft-Gault) 35.8 Glucose Level 111mg/dL (70-99) Calcium Level 9.7mg/dL (8.5-10.1) AARON SOLORIO MD Jan 03, 2017 10:49
--- NOTE | 2017-01-03 10:50 | PDOC3 ---
Discharge Summary* Date of Admission: Dec 29, 2016 Date of Discharge: Jan 03, 2017 Admitting Diagnosis Problems Medical Problems: (1) Altered mental status Status: Acute (2) Atrial fibrillation with RVR Status: Acute (3) Closed left clavicular fracture Status: Acute (4) Mental status change Status: Acute Final Diagnosis 1. recurrent falls 2. left clavicle Fx 3. worsening Dementia 4. atrial fib, chronic with RVR refuse pace maker continue supportive care. which is pt desire 5. mechanical MVR with chronic OAC 6. chronic diastolic HF LVEF mildly depressed @ 45-50% continue medical management 7. elevated troponin levels likely demand mediated and in the setting of CKD MPI 08/2016 was low to intermediate risk - given her dementia - not a candidate for aggressive cardiac evaluation given age, dementia, and debility 8. Acute on chronic renal failure Medical Problems: (1) Altered mental status Status: Acute (2) Atrial fibrillation with RVR Status: Acute (3) Closed left clavicular fracture Status: Acute (4) Mental status change Status: Acute CONSULTS cardiology Orthopedic Procedures CXR CT scan head and cervical spine Shoulder x-ray Elbow x-ray Renal ultrasound Brief Hospital Course Ms. Baker is a 86 old [sex] who presented with [ ] Disposition/Orders: D/C to Another Facility CONDITION AT DISCHARGE: Improved, Comment (guarded prognosis) Diet: Cardiac Scheduled Acetaminophen (Acetaminophen Supp) 650 MG RC Q4HRS (Reported) Calcium Citrate/Vitamin D3 (Citracal + D Maximum Caplet) 1 EACH PO BID 0800 AND 1700 (Reported) Ceftriaxone Na/Dextrose,Iso (Ceftriaxone 1 Gm Piggyback) 1 GM IV DAILY Cholecalciferol (Vitamin D3) (Vitamin D3) 400 UNIT PO DAILY (Reported) Digoxin (Digoxin) 1 TAB PO DAILY (Reported) Diltiazem Hcl (Diltiazem Hcl Tablet) 60 MG PO QID Folic Acid (Folic Acid) 1 MG PO DAILY (Reported) Guaifenesin/Dextromethorphan (Tussin Dm Cough & Chest Syrup) 10 ML PO Q4HRS ( Reported) Hydrocortisone (Anusol-Hc) 1 TERESITA TP BID Lisinopril (Lisinopril) 10 MG PO DAILY Memantine Hcl (Namenda) 10 MG PO BID (Reported) Mirtazapine (Remeron) 15 MG PO DAILY (Reported) [place]-3 Fatty Acids/Fish Oil (Fish Oil 1,000 Mg Capsule) 1 CAP PO DAILY ( Reported) Sertraline Hcl (Sertraline Hcl) 50 MG PO DAILY (Reported) Spironolactone (Aldactone) 25 MG PO DAILY Warfarin Sodium (Coumadin) 3 MG PO DAILY16 Scheduled PRN Bisacodyl (Bisacodyl) 10 MG RC PRN DAILY PRN PRN CONSTIPATION (Reported) Mag Hydrox/Al Hydrox/Simeth (Rulox Suspension) 30 ML PO PRN Q2HR PRN PRN STOMACH CRAMPING (Reported) Magnesium Hydroxide (Milk Of Magnesia) 30 ML PO DAILY PRN PRN CONSTIPATION ( Reported) Nitroglycerin (NITROGLYCERIN SubLingual) 0.4 MG SL PRN Q5MIN PRN PRN CHEST PAIN (Reported) FOLLOW UP APPOINTMENT: Hold Coumadin today INR on Friday Time Spent Total time spent with patient [] minutes for coordination of care, counseling, and education. AARON SOLORIO MD Jan 03, 2017 10:50
[2017-01-03 11:50] VITALS: BP 141/87
[2017-01-03] MEDS ORDERED: DILTIAZEM HCL 30 MG TABLET PO SCH (12:00)
[2017-01-03 12:16] VITALS: BP 141/87
[2017-01-03] MEDS ORDERED: ACETAMINOPHEN 500 MG TABLET PO PRN (15:30)
== END 2017-01-03 15:40 | DRG 682 ==
LOC: ER 08:25 → ED HOLD 09:41 → OBSVTOIN 09:41 → 1 WEST ICU 12:25 → 2 NORTH 12-30 20:45
PROVIDERS: ADMIT Internal Medicine; ATTEND Internal Medicine
DX: N17.9 Acute kidney failure, unspecified (principal); G93.40 Encephalopathy, unspecified; Z68.1 Body mass index [BMI] 19.9 or less, adult; I13.0 Hypertensive heart and chronic kidney disease with heart failure and stage 1 through stage 4 chronic kidney disease, or unspecified chronic kidney disease; I50.32 Chronic diastolic (congestive) heart failure; S42.002A Fracture of unspecified part of left clavicle, initial encounter for closed fracture; E78.00 Pure hypercholesterolemia, unspecified; E78.5 Hyperlipidemia, unspecified; F03.90 Unspecified dementia, unspecified severity, without behavioral disturbance, psychotic disturbance, mood disturbance, and anxiety; I25.10 Atherosclerotic heart disease of native coronary artery without angina pectoris; I48.2 Chronic atrial fibrillation; K21.9 Gastro-esophageal reflux disease without esophagitis; K64.9 Unspecified hemorrhoids; M81.0 Age-related osteoporosis without current pathological fracture; N18.9 Chronic kidney disease, unspecified; W19.XXXA Unspecified fall, initial encounter; Z79.01 Long term (current) use of anticoagulants; Z82.49 Family history of ischemic heart disease and other diseases of the circulatory system; Z85.828 Personal history of other malignant neoplasm of skin; Z86.73 Personal history of transient ischemic attack (TIA), and cerebral infarction without residual deficits; Z88.8 Allergy status to other drugs, medicaments and biological substances; Z95.0 Presence of cardiac pacemaker; Z95.2 Presence of prosthetic heart valve; Y93.89 Activity, other specified; Y92.89 Other specified places as the place of occurrence of the external cause
CPT/HCPCS: 36415; 70450; 71010; 72125; 73030; 73080; 76770; 80048; 80076; 80162; 81001; 82550; 82947; 83690; 83735; 83880; 84484; 85027; 85610; 93005; 96365; 96366; 96375; J1160; J2270; J2405; J3010; J3490; J7040; 97530; 99285-25

== ENCOUNTER 2017-10-14 16:09 | Inpatient (IN) | payer BC ==
[~2017-10-14] VITALS: Ht 167.6 cm; Wt 48.7 kg
[~2017-10-14 16:09] MED LIST changes: +DILT60TA PO; +HYDR30CR61 TP; +IV NORMAL SALINE 1000ML BAG 1,000 ML IV SCH; -MAGN400O4 PO; +MAGN400O7 PO; +NITR0.4T22 SL; -NITR0.4T6 SL; -WARF3TAB PO; +WARF3TAB54 PO
[2017-10-14] MEDS ORDERED: ASPIRIN CHEWABLE 81 MG TABLET. PO ONE (16:15)
[2017-10-14] MEDS ORDERED: dilTIAZem IV PUSH 25 MG/5 ML VIAL ONE (16:22)
[2017-10-14 16:25] LABS: BASO # 0.1 x10^3/uL (0.0-0.2); BASO % 1 % (0-3); EOS % 1 % (0-3); HEMATOCRIT 41.3 % (36.0-47.0); HEMOGLOBIN 13.1 g/dL (12.0-15.5); LYMPH # 1.8 x10^3/uL (1.0-4.8); LYMPH % 24 % (24-48); MEAN CORPUSCULAR HEMOGLOBIN 30 pg (25-35); MEAN CORPUSCULAR HGB CONC 32 g/dL (31-37); MEAN CORPUSCULAR VOLUME 94 fL (79-100); MONO % 10 % (0-9); NEUT % 63 % (31-73); PLATELET COUNT 227 x10^3/uL (140-400); RED BLOOD COUNT 4.38 x10^6/uL (3.50-5.40); RED CELL DISTRIBUTION WIDTH 14.9 % (11.5-14.5); WHITE BLOOD COUNT 7.4 x10^3/uL (4.0-11.0)
[2017-10-14] MEDS ORDERED: dilTIAZem IV PUSH 25 MG/5 ML VIAL IVP ONE ×2 (16:30→17:30)
--- NOTE | 2017-10-14 16:31 | RAD ---
EXAM: Chest one view. HISTORY: Tachycardia, atrial fibrillation. COMPARISON: 12/29/2016. FINDINGS: A frontal view of the chest is obtained. There are changes of median sternotomy and aortic valve replacement. Interstitial opacities in the bases are consistent with scarring or mild pulmonary edema. A component of pleural based scarring is also again noted in the left midlung. An 11 mm nodule in the left upper lobe has been present since at least 2008 and is likely benign. Hyperinflation is consistent with chronic obstructive pulmonary disease. A small left pleural effusion cannot be excluded. There is no pneumothorax. There are atherosclerotic calcifications of the aorta. The heart is moderately enlarged. There is a chronic fracture deformity of the left distal clavicle. IMPRESSION: 1. Moderate cardiomegaly. Mild pulmonary edema and trace left pleural effusion versus scarring. 2. Chronic obstructive pulmonary disease. 3. An 11 mm left upper lobe nodule has been stable chronically and is likely benign.
--- NOTE | 2017-10-14 16:32 | PHYS DOC ---
Past Medical History Past Medical History: A-Fib, CAD, CHF, Dementia, Depression, GERD, High Cholesterol, Heart Disease, Hypertension, AL, Renal Disease, UTI Additional Past Medical Histor: ENDOCARDITIS, OSTEOPOROSIS Past Surgical History: Pacemaker, Other Additional Past Surgical Histo: MITRAL VALVE REPLACEMENT, Pacemaker removed, Skin CA removed Alcohol Use: None Drug Use: None Adult General Chief Complaint Chief Complaint: CHEST PAIN-CARDIAC NATURE HPI HPI 87-year-old female skilled nursing patient with a history of some dementia now brought in for evaluation of rapid heart rate. Patient has a history of atrial fibrillation. She was previously anticoagulated but apparently this is been discontinued some time in the past which daughter was not aware of. Daughter also just found out the patient has been refusing her meds recently which she suspects is because of an exacerbation of her dementia however the skilled nursing has been allowing her to refuse. Heart rate elevated in irregular today so patient was referred to the emergency department. The patient denies having chest pain but she has exertional intolerance with minimal exertion. No fevers chills sweats or shaking chills. No productive cough or recent illness Review of Systems Review of Systems Constitutional: Denies fever or chills [] Eyes: Denies change in visual acuity, redness, or eye pain [] HENT: Denies nasal congestion or sore throat [] Respiratory: Denies cough or shortness of breath [] Cardiovascular: No additional information not addressed in HPI [] GI: Denies abdominal pain, nausea, vomiting, bloody stools or diarrhea [] : Denies dysuria or hematuria [] Musculoskeletal: Denies back pain or joint pain [] Integument: Denies rash or skin lesions [] Neurologic: Denies headache, focal weakness or sensory changes [] Endocrine: Denies polyuria or polydipsia [] All other systems were reviewed and found to be within normal limits, except as documented in this note. Current Medications Current Medications Current Medications Medications (Trade) Dose Ordered Sig/Alan Start Time Stop Time Status Last Admin Dose Admin Aspirin (Children'S Aspirin) 324 mg 1X ONCE 10/14/17 16:15 10/14/17 16:16 DC Diltiazem HCl (Cardizem) 10 mg 1X ONCE 10/14/17 17:30 10/14/17 17:31 DC 10/14/17 17:28 10 MG Diltiazem HCl 125 mg/Dextrose 125 ml @ 0 mls/hr CONT PRN 10/14/17 16:30 10/15/17 12:55 DC 10/15/17 04:42 10 MLS/HR Heparin Sodium (Porcine) (Heparin Sodium) 4,000 unit 1X ONCE 10/14/17 17:45 10/14/17 17:48 DC 10/14/17 19:58 4,000 UNIT Heparin Sodium/ Dextrose 500 ml @ 0 mls/hr CONT PRN 10/14/17 17:45 10/14/17 20:02 0 MLS/HR Ondansetron HCl (Zofran) 4 mg PRN Q8HRS PRN 10/14/17 18:00 10/15/17 17:59 Sodium Chloride 1,000 ml @ 125 mls/hr Q8H 10/14/17 17:56 10/14/17 21:05 DC Allergies Allergies Allergies Coded Allergies Type Severity Reaction Last Updated Verified sulfamethoxazole Allergy Intermediate 09/08/16 Yes trimethoprim Allergy Intermediate 09/08/16 Yes zolpidem Allergy Intermediate 06/23/14 Yes Beta-Blockers (Beta-Adrenergic Bloc Adverse Reaction Severe has cardiac pauses 12/30/16 Yes Calcium Channel Blocking Agent Dilt Adverse Reaction Severe has cardiac pauses 12/30/16 Yes Physical Exam Physical Exam Alert communicative cheerful and appropriate but chronically weak appearing elderly female with mildly dry mucous membranes. She has tachycardia in the 160s irregularly irregular. Patient is comfortable appearing at rest however she does become dyspneic with any effort. Clear lungs. Benign abdomen normal extremities except for emaciation and skin tenting. Constitutional: Well developed, well nourished, no acute distress, non-toxic appearance. [] HENT: Normocephalic, atraumatic, bilateral external ears normal, oropharynx moist, no oral exudates, nose normal. [] Eyes: PERRLA, EOMI, conjunctiva normal, no discharge. [] Neck: Normal range of motion, no tenderness, supple, no stridor. [] Cardiovascular: As above Lungs & Thorax: Bilateral breath sounds clear to auscultation [] Abdomen: Bowel sounds normal, soft, no tenderness, no masses, no pulsatile masses. [] Skin: Warm, dry, no erythema, no rash. [] Back: No tenderness, no CVA tenderness. [] Extremities: No tenderness, no cyanosis, no clubbing, ROM intact, no edema. [] Neurologic: Alert and oriented at mental status baseline with dementia per daughter normal motor function, normal sensory function, no focal deficits noted. [] Psychologic: Affect normal, judgement normal, mood normal. [] Current Patient Data Vital Signs Vital Signs Date Time Temp Pulse Resp B/P (MAP) Pulse Ox O2 Delivery O2 Flow Rate FiO2 10/14/17 18:30 115 20 156/84 (108) 91 Room Air 10/14/17 16:10 98.0 98.0 Lab Values Laboratory Tests Test 10/14/17 16:15 White Blood Count 7.4 x10^3/uL (4.0-11.0) Red Blood Count 4.38 x10^6/uL (3.50-5.40) Hemoglobin 13.1 g/dL (12.0-15.5) Hematocrit 41.3 % (36.0-47.0) Mean Corpuscular Volume 94 fL (79-100) Mean Corpuscular Hemoglobin 30 pg (25-35) Mean Corpuscular Hemoglobin Concent 32 g/dL (31-37) Red Cell Distribution Width 14.9 % (11.5-14.5) H Platelet Count 227 x10^3/uL (140-400) Neutrophils (%) (Auto) 63 % (31-73) Lymphocytes (%) (Auto) 24 % (24-48) Monocytes (%) (Auto) 10 % (0-9) H Eosinophils (%) (Auto) 1 % (0-3) Basophils (%) (Auto) 1 % (0-3) Neutrophils # (Auto) 4.7 x10^3uL (1.8-7.7) Lymphocytes # (Auto) 1.8 x10^3/uL (1.0-4.8) Monocytes # (Auto) 0.7 x10^3/uL (0.0-1.1) Eosinophils # (Auto) 0.1 x10^3/uL (0.0-0.7) Basophils # (Auto) 0.1 x10^3/uL (0.0-0.2) Sodium Level 138 mmol/L (136-145) Potassium Level 4.7 mmol/L (3.5-5.1) Chloride Level 103 mmol/L (98-107) Carbon Dioxide Level 25 mmol/L (21-32) Anion Gap 10 (6-14) Blood Urea Nitrogen 38 mg/dL (7-20) H Creatinine 1.6 mg/dL (0.6-1.0) H Estimated GFR (Cockcroft-Gault) 30.6 BUN/Creatinine Ratio 24 (6-20) H Glucose Level 118 mg/dL (70-99) H Calcium Level 9.3 mg/dL (8.5-10.1) Total Bilirubin 0.8 mg/dL (0.2-1.0) Aspartate Amino Transferase (AST) 32 U/L (15-37) Alanine Aminotransferase (ALT) 31 U/L (14-59) Alkaline Phosphatase 93 U/L (46-116) Troponin I Quantitative 0.319 ng/mL (0.000-0.055) Total Protein 7.4 g/dL (6.4-8.2) Albumin 3.7 g/dL (3.4-5.0) Albumin/Globulin Ratio 1.0 (1.0-1.7) Digoxin Level < 0.2 ng/mL (0.9-2.0) L Digoxin Last Dose Date Digoxin Last Dose Time Laboratory Tests 10/14/17 16:15 Laboratory Tests 10/14/17 16:15 EKG EKG EKG with atrial fibrillation rapid ventricular response at 160 right axis deviation nonspecific ST and T-wave findings no STEMI interpreted by me Radiology/Procedures Radiology/Procedures Chest x-ray with chronic changes no acute disease interpreted by me[] Course & Med Decision Making Course & Med Decision Making Pertinent Labs and Imaging studies reviewed. (See chart for details) Signs and symptoms consistent with atrial fibrillation with rapid ventricular response in a patient with a known history of A. fib not anticoagulated and recently allowed by skilled nursing staff to be noncompliant with her medication regimen. Cardizem bolus and drip initiated. Full workup pending including digoxin level. Anticipate inpatient admission to a CVC bed for further treatment and full cardiac workup. Phone and positive at 0.319. Consistent with non-STEMI. Discussed with patient' s primary care doctor Dr. Solorio is aware of history and findings and agrees with anticoagulation with heparin protocol and Cardizem bolus and drip treatment and patient and daughter would like to reverse hospice status for this treatment episode and Dr. Solorio states he will reestablish hospice status after patient stabilized on her medication regimen and treated during this hospital stay. Critical care 76 minutes [] Dragon Disclaimer Dragon Disclaimer This electronic medical record was generated, in whole or in part, using a voice recognition dictation system. Departure Departure Impression: Primary Impression: Atrial fibrillation with RVR Additional Impression: Tachycardia Disposition: ADMITTED INPATIENT Admitting Physician: Debbie Mead Referrals: AARON SOLORIO MD (PCP) Problem Qualifiers JESSICA RUANO MD Oct 14, 2017 16:32
[2017-10-14 16:49] LABS: ALBUMIN 3.7 g/dL (3.4-5.0); CALCIUM 9.3 mg/dL (8.5-10.1); CREATININE 1.6 mg/dL (0.6-1.0); GFR 30.6; POTASSIUM 4.7 mmol/L (3.5-5.1); TOTAL BILIRUBIN 0.8 mg/dL (0.2-1.0); TOTAL PROTEIN 7.4 g/dL (6.4-8.2)
--- NOTE | 2017-10-14 17:39 | EKG ---
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
[2017-10-14] MEDS ORDERED: HEPARIN for IV BOLUS 10,000 UNIT/10 ML VIAL. IV ONE (17:45)
[2017-10-14] MEDS ORDERED: IV NORMAL SALINE 1000ML BAG 1,000 ML IV SCH (17:56)
[2017-10-14] MEDS ORDERED: ONDANSETRON PF 4 MG/2 ML VIAL. IV PRN (18:00)
[2017-10-14] MEDS: HEPARIN 25,000UTS/500ML PREMIX 500 ML IV PRN (20:02)
[2017-10-14 20:12] VITALS: BP 142/77
[2017-10-14] MEDS ORDERED: DOCU100C28 PO (20:47)
[2017-10-14] MEDS ORDERED: DILT180C29 PO (20:47)
[2017-10-14] MEDS ORDERED: ASPI325T11 PO (20:47)
[2017-10-14] MEDS ORDERED: TRAM50TA PO (20:47)
[2017-10-14] MEDS ORDERED: MAGNESIUM HYDROXIDE 2,400 MG/30 ML ORAL.SUSP. PO PRN (21:15)
[2017-10-14] MEDS ORDERED: NITROGLYCERIN SUBLINGUAL 0.4 MG BOTTLE OF 25. SL PRN (21:15)
[2017-10-14] MEDS ORDERED: BISACODYL 10 MG SUPP.RECT. RC PRN (21:15)
[2017-10-14] MEDS ORDERED: MAG HYDROX/ALUMINUM HYD/SIMETH 30 ML ORAL.SUSP PO PRN (21:15)
[2017-10-14] MEDS: HYDROCORTISONE 2.5% RECTAL CREAM 30GM TUBE. RC SCH (21:30)
[2017-10-14] MEDS ORDERED: WARFARIN 5 MG TABLET. PO ONE (21:30)
[2017-10-14] MEDS: MEMANTINE 10 MG TABLET. PO SCH (21:53)
[2017-10-14 22:56] VITALS: BP 128/61
[2017-10-15] VITALS (10 sets, daily range): BP systolic 64–123; BP diastolic 51–71
[2017-10-15] MEDS ORDERED: ACETAMINOPHEN 650 MG SUPP.RECT. RC PRN
[2017-10-15 02:59] LABS: INR 1.4 (0.8-1.1); PROTHROMBIN TIME PATIENT 16.1 SEC (11.7-14.0)
--- NOTE | 2017-10-15 06:55 | EKG ---
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
--- NOTE | 2017-10-15 08:50 | PDOC ---
GENERAL General: see dictated H&P. nonstemi and a-fib with rvr. cardiology consulted. seems quite demented on attempt to get history. on cardizem drip. Problems: VITAL SIGNS Vital Signs: Vital Signs Date Time Temp Pulse Resp B/P (MAP) Pulse Ox O2 Delivery O2 Flow Rate FiO2 10/15/17 08:00 Room Air 10/15/17 07:50 98.3 121 20 99/68 (78) 91 98.3 I & O I & O Intake and Output 10/15/17 07:00 Intake Total 1110 ml Balance 1110 ml Intake Oral 300 ml IV Total 810 ml # Voids 4 ALLERGIES Allergies: Allergies Coded Allergies Type Severity Reaction Last Updated Verified sulfamethoxazole Allergy Intermediate 09/08/16 Yes trimethoprim Allergy Intermediate 09/08/16 Yes zolpidem Allergy Intermediate 06/23/14 Yes Beta-Blockers (Beta-Adrenergic Bloc Adverse Reaction Severe has cardiac pauses 12/30/16 Yes Calcium Channel Blocking Agent Dilt Adverse Reaction Severe has cardiac pauses 12/30/16 Yes MEDS Medications: Current Medications Medications (Trade) Dose Ordered Sig/Alan Start Time Stop Time Status Last Admin Dose Admin Acetaminophen (Acetaminophen Supp) 650 mg PRN Q4HRS PRN 10/15/17 00:00 Al Hydroxide/Mg Hydroxide (Mylanta Plus Xs) 30 ml PRN Q2HR PRN 10/14/17 21:15 Aspirin (Children'S Aspirin) 324 mg 1X ONCE 10/14/17 16:15 10/14/17 16:16 DC Aspirin (Ecotrin) 325 mg DAILY 10/15/17 09:00 Bisacodyl (Dulcolax Supp) 10 mg PRN DAILY PRN 10/14/17 21:15 Calcium/Vitamin D (Oscal D 500mg/ 200uts) 1 tab BIDWMEALS 10/15/17 08:00 Digoxin (Lanoxin) 125 mcg DAILY 10/15/17 09:00 Diltiazem HCl (Cardizem 24hr Cd) 180 mg DAILY 10/15/17 09:00 Diltiazem HCl (Cardizem) 10 mg 1X ONCE 10/14/17 17:30 10/14/17 17:31 DC 10/14/17 17:28 10 MG Diltiazem HCl 125 mg/Dextrose 125 ml @ 0 mls/hr CONT PRN 10/14/17 16:30 10/15/17 04:42 10 MLS/HR Docusate Sodium (Colace) 100 mg DAILY 10/15/17 09:00 Fish Oil (Fish Oil) 1,000 mg DAILY 10/15/17 09:00 Folic Acid (Folic Acid) 1 mg DAILY 10/15/17 09:00 Heparin Sodium (Porcine) (Heparin Sodium) 4,000 unit 1X ONCE 10/14/17 17:45 10/14/17 17:48 DC 10/14/17 19:58 4,000 UNIT Heparin Sodium/ Dextrose 500 ml @ 0 mls/hr CONT PRN 10/14/17 17:45 10/14/17 20:02 0 MLS/HR Hydrocortisone (Proctosol-Hc) 1 laine BID 10/14/17 21:30 Magnesium Hydroxide (Milk Of Magnesia) 2,400 mg DAILY PRN 10/14/17 21:15 Memantine (Namenda) 10 mg BID 10/14/17 21:30 10/14/17 21:53 10 MG Mirtazapine (Remeron) 15 mg DAILY 10/15/17 09:00 Nitroglycerin (Nitrostat) 0.4 mg PRN Q5MIN PRN 10/14/17 21:15 Ondansetron HCl (Zofran) 4 mg PRN Q8HRS PRN 10/14/17 18:00 10/15/17 17:59 Sertraline HCl (Zoloft) 50 mg DAILY 10/15/17 09:00 Sodium Chloride 1,000 ml @ 125 mls/hr Q8H 10/14/17 17:56 10/14/17 21:05 DC Spironolactone (Aldactone) 25 mg DAILY 10/15/17 09:00 Tramadol HCl (Ultram) 50 mg PRN Q6HRS PRN 10/14/17 21:15 Vitamin D (Vitamin D3) 500 unit DAILY 10/15/17 09:00 Warfarin Sodium (Coumadin Per Physician) 1 each PRN DAILY PRN 10/14/17 21:30 Warfarin Sodium (Coumadin) 5 mg 1X ONCE 10/14/17 21:30 10/14/17 21:31 DC 10/14/17 21:53 5 MG LAB Lab: Laboratory Tests Test 10/14/17 16:15 10/14/17 23:50 10/15/17 02:10 10/15/17 04:00 White Blood Count 7.4 x10^3/uL (4.0-11.0) Red Blood Count 4.38 x10^6/uL (3.50-5.40) Hemoglobin 13.1 g/dL (12.0-15.5) Hematocrit 41.3 % (36.0-47.0) Mean Corpuscular Volume 94 fL (79-100) Mean Corpuscular Hemoglobin 30 pg (25-35) Mean Corpuscular Hemoglobin Concent 32 g/dL (31-37) Red Cell Distribution Width 14.9 % (11.5-14.5) Platelet Count 227 x10^3/uL (140-400) Neutrophils (%) (Auto) 63 % (31-73) Lymphocytes (%) (Auto) 24 % (24-48) Monocytes (%) (Auto) 10 % (0-9) Eosinophils (%) (Auto) 1 % (0-3) Basophils (%) (Auto) 1 % (0-3) Neutrophils # (Auto) 4.7 x10^3uL (1.8-7.7) Lymphocytes # (Auto) 1.8 x10^3/uL (1.0-4.8) Monocytes # (Auto) 0.7 x10^3/uL (0.0-1.1) Eosinophils # (Auto) 0.1 x10^3/uL (0.0-0.7) Basophils # (Auto) 0.1 x10^3/uL (0.0-0.2) Sodium Level 138 mmol/L (136-145) Potassium Level 4.7 mmol/L (3.5-5.1) Chloride Level 103 mmol/L (98-107) Carbon Dioxide Level 25 mmol/L (21-32) Anion Gap 10 (6-14) Blood Urea Nitrogen 38 mg/dL (7-20) Creatinine 1.6 mg/dL (0.6-1.0) Estimated GFR (Cockcroft-Gault) 30.6 BUN/Creatinine Ratio 24 (6-20) Glucose Level 118 mg/dL (70-99) Calcium Level 9.3 mg/dL (8.5-10.1) Total Bilirubin 0.8 mg/dL (0.2-1.0) Aspartate Amino Transf (AST/SGOT) 32 U/L (15-37) Alanine Aminotransferase (ALT/SGPT) 31 U/L (14-59) Alkaline Phosphatase 93 U/L (46-116) Troponin I Quantitative 0.319 ng/mL (0.000-0.055) 0.301 ng/mL (0.000-0.055) 0.285 ng/mL (0.000-0.055) Total Protein 7.4 g/dL (6.4-8.2) Albumin 3.7 g/dL (3.4-5.0) Albumin/Globulin Ratio 1.0 (1.0-1.7) Digoxin Level < 0.2 ng/mL (0.9-2.0) Digoxin Last Dose Date Digoxin Last Dose Time Prothrombin Time 16.1 SEC (11.7-14.0) Prothromb Time International Ratio 1.4 (0.8-1.1) Heparin Anti-Xa Act, Unfractionated 0.20 IU/mL (0.30-0.70) APPLDA MD Oct 15, 2017 08:50
[2017-10-15] MEDS ORDERED: DIGOXIN 125 MCG TABLET. PO SCH (09:00)
[2017-10-15] MEDS ORDERED: DIGOXIN IV 500 MCG/2 ML AMPUL. IV ONE (10:15)
--- NOTE | 2017-10-15 10:17 | PDOC2 ---
CARDIAC CONSULT DATE OF CONSULT Date of Consult DATE: 10/15/17 TIME: 09:54 REASON FOR CONSULT Reason for Consult: NSTEMI AFIB with RVR REFERRING PHYSICIAN Referring Physician: Dr. James SOURCE Source: Caregiver, Chart review HISTORY OF PRESENT ILLNESS HISTORY OF PRESENT ILLNESS This is an 87 yo female, known to us from previous hospitalizations, who presented from nursing facility secondary to rapid heart rate. Patient unable to provide history due to significant dementia. Per nursing staff, patient has been refusing to take medications for the last couple of weeks. Had a history of mechanical mitral valve- INR 1.4 upon admission. Dig level <0.2. Patient denies any present chest pain, palpitations, or dizziness. Patient also has a history of AFIB. Has been noted with Tachy/caroline in the past. PPM was explanted due to infection. Son, who is DPOA, declined to have PPM re-implanted multiple times in the past as well as the patient has adamantly refused in the past. 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 of SSS with previous PPM - ? explanted for infection ) CENTRAL NERVOUS SYSTEM: CVA, Dementia GI: GERD Psych: Anxiety, Depression Musculoskeletal: Osteoarthritis Renal/: UTI, Urinary Incontinence Endocrine: Osteoporosis PAST SURGICAL HISTORY Past Surgical History see [facility] FAMILY HISTORY Family History: Hypertension SOCIAL HISTORY Smoke: No ALCOHOL: none Drugs: None CURRENT MEDICATIONS CURRENT MEDICATIONS Current Medications Medications (Trade) Dose Ordered Sig/Alan Route PRN Reason Start Time Stop Time Status Last Admin Dose Admin Diltiazem HCl (Cardizem) 10 mg 1X ONCE IVP 10/14/17 16:30 10/14/17 16:31 DC 10/14/17 16:28 Diltiazem HCl 125 mg/Dextrose 125 ml @ 0 mls/hr CONT PRN IV SEE I/O RECORD 10/14/17 16:30 10/15/17 04:42 Diltiazem HCl (Cardizem) 10 mg 1X ONCE IVP 10/14/17 17:30 10/14/17 17:31 DC 10/14/17 17:28 Heparin Sodium (Porcine) (Heparin Sodium) 4,000 unit 1X ONCE IV 10/14/17 17:45 10/14/17 17:48 DC 10/14/17 19:58 Heparin Sodium/ Dextrose 500 ml @ 0 mls/hr CONT PRN IV SEE I/O RECORD 10/14/17 17:45 10/14/17 20:02 Warfarin Sodium (Coumadin) 5 mg 1X ONCE PO 10/14/17 21:30 10/14/17 21:31 DC 10/14/17 21:53 Memantine (Namenda) 10 mg BID PO 10/14/17 21:30 10/14/17 21:53 ALLERGIES ALLERGIES: Coded Allergies: sulfamethoxazole (Verified Allergy, Intermediate, 09/08/16) trimethoprim (Verified Allergy, Intermediate, 09/08/16) zolpidem (Verified Allergy, Intermediate, 06/23/14) Beta-Blockers (Beta-Adrenergic Bloc (Verified Adverse Reaction, Severe, has cardiac pauses , 12/30/16) Calcium Channel Blocking Agent Dilt (Verified Adverse Reaction, Severe, has cardiac pauses, 12/30/16) PHYSICAL EXAM General: Alert, Cooperative, Other (confused ) HEENT: Atraumatic, Mucous membr. moist/pink Lungs: Clear to auscultation, Normal air movement Heart: Normal S1, Normal S2, Other (tele AFIV with RVR) Abdomen: Soft, No tenderness Extremities: No edema, Normal pulses Skin: No breakdown, No significant lesion Neuro: Normal speech, Sensation intact Psych/Mental Status: Mood NL MUSCULOSKELETAL: Osteoarthritic changes both hands VITALS VITALS Vital Signs Date Time Temp Pulse Resp B/P (MAP) Pulse Ox O2 Delivery O2 Flow Rate FiO2 10/15/17 08:00 Room Air 10/15/17 07:50 98.3 121 20 99/68 (78) 91 98.3 LABS Lab: Laboratory Tests Test 10/14/17 16:15 10/14/17 23:50 10/15/17 02:10 10/15/17 04:00 White Blood Count 7.4 x10^3/uL (4.0-11.0) Red Blood Count 4.38 x10^6/uL (3.50-5.40) Hemoglobin 13.1 g/dL (12.0-15.5) Hematocrit 41.3 % (36.0-47.0) Mean Corpuscular Volume 94 fL (79-100) Mean Corpuscular Hemoglobin 30 pg (25-35) Mean Corpuscular Hemoglobin Concent 32 g/dL (31-37) Red Cell Distribution Width 14.9 % (11.5-14.5) Platelet Count 227 x10^3/uL (140-400) Neutrophils (%) (Auto) 63 % (31-73) Lymphocytes (%) (Auto) 24 % (24-48) Monocytes (%) (Auto) 10 % (0-9) Eosinophils (%) (Auto) 1 % (0-3) Basophils (%) (Auto) 1 % (0-3) Neutrophils # (Auto) 4.7 x10^3uL (1.8-7.7) Lymphocytes # (Auto) 1.8 x10^3/uL (1.0-4.8) Monocytes # (Auto) 0.7 x10^3/uL (0.0-1.1) Eosinophils # (Auto) 0.1 x10^3/uL (0.0-0.7) Basophils # (Auto) 0.1 x10^3/uL (0.0-0.2) Sodium Level 138 mmol/L (136-145) Potassium Level 4.7 mmol/L (3.5-5.1) Chloride Level 103 mmol/L (98-107) Carbon Dioxide Level 25 mmol/L (21-32) Anion Gap 10 (6-14) Blood Urea Nitrogen 38 mg/dL (7-20) Creatinine 1.6 mg/dL (0.6-1.0) Estimated GFR (Cockcroft-Gault) 30.6 BUN/Creatinine Ratio 24 (6-20) Glucose Level 118 mg/dL (70-99) Calcium Level 9.3 mg/dL (8.5-10.1) Total Bilirubin 0.8 mg/dL (0.2-1.0) Aspartate Amino Transf (AST/SGOT) 32 U/L (15-37) Alanine Aminotransferase (ALT/SGPT) 31 U/L (14-59) Alkaline Phosphatase 93 U/L (46-116) Troponin I Quantitative 0.319 ng/mL (0.000-0.055) 0.301 ng/mL (0.000-0.055) 0.285 ng/mL (0.000-0.055) Total Protein 7.4 g/dL (6.4-8.2) Albumin 3.7 g/dL (3.4-5.0) Albumin/Globulin Ratio 1.0 (1.0-1.7) Digoxin Level < 0.2 ng/mL (0.9-2.0) Digoxin Last Dose Date Digoxin Last Dose Time Prothrombin Time 16.1 SEC (11.7-14.0) Prothromb Time International Ratio 1.4 (0.8-1.1) Heparin Anti-Xa Act, Unfractionated 0.20 IU/mL (0.30-0.70) Test 10/15/17 07:55 Heparin Anti-Xa Act, Unfractionated 0.31 IU/mL (0.30-0.70) ECHOCARDIOGRAM ECHOCARDIOGRAM <Conclusion> Left ventricle systolic function is mildly impaired. The Ejection Fraction is 45 -50%. Mild global hypokinesis. Tissue Doppler imaging reveals moderate left ventricular diastolic dysfunction. There is mild valvular aortic stenosis. Calculated aortic valve area is 1.6 cm2 with maximum pressure gradient of 13 mmHg and mean pressure gradient of 9 mmHg. The prosthetic mitral valve is not well visualized due to imaging artifacts from the prosthesis. Doppler and Color Flow revealed mild tricuspid regurgitation. The PA pressure was estimated at 32 mmHg. DATE: 09/09/16 1621 STRESS TEST STRESS TEST Conclusion 1. Regadenoson cardioisotope stress test did not show any evidence of ischemia or infarct. 2. Mild global left ventricular systolic dysfunction with ejection fraction calculated at 43% 3. Low to intermediate risk for cardiac events. DATE: 09/10/16 1242 ASSESSMENT/PLAN ASSESSMENT/PLAN 1. Chronic AFIB, now with RVR due to refusal of rate control therapy. 2. H/o tachy/caroline; PPM perviously explanted due to infection- DPOA has declined re-implantation multiple times in the past 3. NSTEMI; peak 0.319. Likely demand medicated in the setting of RVR and CKD 4. Hypotension; Cardizem gtt held 5. 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 On heparin gtt. 6. Chronic diastolic HF; LVEF mildly depressed @ 45-50%. compensated Recommendations Echo pending Discontinue Cardizem gtt. Will give IV Dig x 1 now for rate control as patient is hypotensive. If BP consistently adequate, may resume oral Cardizem for rate control. Creatine Clearance 21; discontinue oral digoxin given increased risk for toxicity. Resume Coumadin for mechanical MVR- continue heparin gtt for bridge therapy. Supportive care. Problems: ANATOLIY MAURER APRN Oct 15, 2017 10:17
[2017-10-15] MEDS: MEMANTINE 10 MG TABLET. PO SCH ×2 (10:19→20:24)
[2017-10-15] MEDS: ASPIRIN ENTERIC COATED 325 MG TABLET.DR. PO SCH (10:19)
[2017-10-15] MEDS: CALCIUM CARB/VIT D3 500/200 TABLET. PO SCH ×2 (10:19→17:05)
[2017-10-15] MEDS: CHOLECALCIFEROL (VITAMIN D3) 1,000 UNIT TABLET PO SCH (10:20)
[2017-10-15] MEDS: DOCUSATE SODIUM 100 MG CAPSULE. PO SCH (10:21)
[2017-10-15] MEDS: SERTRALINE 50 MG TABLET. PO SCH (10:21)
[2017-10-15] MEDS: SPIRONOLACTONE 25 MG TABLET PO SCH (10:21)
[2017-10-15] MEDS: FOLIC ACID 1 MG TABLET. PO SCH (10:21)
[2017-10-15] MEDS: MIRTAZAPINE 15 MG TABLET PO SCH (10:21)
[2017-10-15] MEDS: OMEGA-3 FATTY ACIDS/FISH OIL 1,000 MG CAPSULE. PO SCH (10:21)
[2017-10-15] MEDS: HYDROCORTISONE 2.5% RECTAL CREAM 30GM TUBE. RC SCH ×2 (10:22→20:25)
[2017-10-15] MEDS ORDERED: WARFARIN 4 MG TABLET. PO ONE (16:00)
[2017-10-16 03:32] VITALS: BP 121/68
[2017-10-16 06:05] LABS: INR 1.8 (0.8-1.1)
[2017-10-16] MEDS: HEPARIN 25,000UTS/500ML PREMIX 500 ML IV PRN (06:45)
[2017-10-16] MEDS ORDERED: HEPARIN for IV BOLUS 10,000 UNIT/10 ML VIAL. IV PRN (06:45)
[2017-10-16 07:00] VITALS: BP 129/81
[2017-10-16] MEDS ORDERED: DIGOXIN IV 500 MCG/2 ML AMPUL. IV ONE ×2 (08:45→15:00)
[2017-10-16 08:46] LABS: BASO # 0.1 x10^3/uL (0.0-0.2); BASO % 1 % (0-3); EOS % 5 % (0-3); HEMATOCRIT 38.4 % (36.0-47.0); HEMOGLOBIN 12.3 g/dL (12.0-15.5); LYMPH # 1.2 x10^3/uL (1.0-4.8); LYMPH % 16 % (24-48); MEAN CORPUSCULAR HEMOGLOBIN 30 pg (25-35); MEAN CORPUSCULAR HGB CONC 32 g/dL (31-37); MEAN CORPUSCULAR VOLUME 94 fL (79-100); MONO % 11 % (0-9); NEUT % 67 % (31-73); PLATELET COUNT 174 x10^3/uL (140-400); RED BLOOD COUNT 4.09 x10^6/uL (3.50-5.40); RED CELL DISTRIBUTION WIDTH 15.1 % (11.5-14.5); WHITE BLOOD COUNT 7.3 x10^3/uL (4.0-11.0)
[2017-10-16] MEDS: CHOLECALCIFEROL (VITAMIN D3) 1,000 UNIT TABLET PO SCH (08:46)
[2017-10-16] MEDS: MIRTAZAPINE 15 MG TABLET PO SCH (08:47)
[2017-10-16] MEDS: DOCUSATE SODIUM 100 MG CAPSULE. PO SCH (08:47)
[2017-10-16] MEDS: SPIRONOLACTONE 25 MG TABLET PO SCH (08:47)
[2017-10-16] MEDS: FOLIC ACID 1 MG TABLET. PO SCH (08:47)
[2017-10-16] MEDS: MEMANTINE 10 MG TABLET. PO SCH ×2 (08:47→20:30)
[2017-10-16] MEDS: CALCIUM CARB/VIT D3 500/200 TABLET. PO SCH ×2 (08:47→15:48)
[2017-10-16] MEDS: SERTRALINE 50 MG TABLET. PO SCH (08:47)
[2017-10-16] MEDS: ASPIRIN ENTERIC COATED 325 MG TABLET.DR. PO SCH (08:47)
[2017-10-16] MEDS: OMEGA-3 FATTY ACIDS/FISH OIL 1,000 MG CAPSULE. PO SCH (08:47)
[2017-10-16 08:57] LABS: CALCIUM 9.1 mg/dL (8.5-10.1); CREATININE 1.4 mg/dL (0.6-1.0); GFR 35.7; POTASSIUM 4.3 mmol/L (3.5-5.1)
[2017-10-16] MEDS: HYDROCORTISONE 2.5% RECTAL CREAM 30GM TUBE. RC SCH ×2 (08:58→20:31)
[2017-10-16 09:01] LABS: ALBUMIN/GLOBULIN RATIO 0.9 (1.0-1.7); MAGNESIUM 2.1 mg/dL (1.8-2.4); TOTAL BILIRUBIN 0.6 mg/dL (0.2-1.0); TOTAL PROTEIN 6.4 g/dL (6.4-8.2)
--- NOTE | 2017-10-16 11:14 | PDOC ---
GENERAL General: currently resting quietly without complaints. pulse currently 90 and a-fib. rate to 160 earlier this am and iv dig has slowed. chest clear, heart irregular with controlled rate, abdomen benign, and pleasantly confused. cardiac help appreciated. difficult situation as will likely need cardizem and dig for rate control and will be imperative that snf gives same. anticoagulation underway and high risk for event without with both a-fib and hx of mvr. Problems: VITAL SIGNS Vital Signs: Vital Signs Date Time Temp Pulse Resp B/P (MAP) Pulse Ox O2 Delivery O2 Flow Rate FiO2 10/16/17 08:48 158 10/16/17 08:47 129/81 10/16/17 08:00 Room Air 10/16/17 07:00 98.7 16 92 98.7 I & O I & O Intake and Output 10/16/17 07:00 Intake Total 660 ml Balance 660 ml Intake Oral 660 ml # Voids 7 ALLERGIES Allergies: Allergies Coded Allergies Type Severity Reaction Last Updated Verified sulfamethoxazole Allergy Intermediate 09/08/16 Yes trimethoprim Allergy Intermediate 09/08/16 Yes zolpidem Allergy Intermediate 06/23/14 Yes Beta-Blockers (Beta-Adrenergic Bloc Adverse Reaction Severe has cardiac pauses 12/30/16 Yes Calcium Channel Blocking Agent Dilt Adverse Reaction Severe has cardiac pauses 12/30/16 Yes MEDS Medications: Current Medications Medications (Trade) Dose Ordered Sig/Alan Start Time Stop Time Status Last Admin Dose Admin Acetaminophen (Acetaminophen Supp) 650 mg PRN Q4HRS PRN 10/15/17 00:00 Al Hydroxide/Mg Hydroxide (Mylanta Plus Xs) 30 ml PRN Q2HR PRN 10/14/17 21:15 Aspirin (Children'S Aspirin) 324 mg 1X ONCE 10/14/17 16:15 10/14/17 16:16 DC Aspirin (Ecotrin) 325 mg DAILY 10/15/17 09:00 10/16/17 08:47 325 MG Bisacodyl (Dulcolax Supp) 10 mg PRN DAILY PRN 10/14/17 21:15 Calcium/Vitamin D (Oscal D 500mg/ 200uts) 1 tab BIDWMEALS 10/15/17 08:00 10/16/17 08:47 1 TAB Digoxin (Lanoxin) 500 mcg 1X ONCE 10/16/17 08:45 10/16/17 08:46 DC 10/16/17 08:48 500 MCG Diltiazem HCl (Cardizem 24hr Cd) 180 mg DAILY 10/15/17 09:00 10/16/17 08:47 180 MG Diltiazem HCl (Cardizem) 10 mg 1X ONCE 10/14/17 17:30 10/14/17 17:31 DC 10/14/17 17:28 10 MG Diltiazem HCl 125 mg/Dextrose 125 ml @ 0 mls/hr CONT PRN 10/14/17 16:30 10/15/17 12:55 DC 10/15/17 04:42 10 MLS/HR Docusate Sodium (Colace) 100 mg DAILY 10/15/17 09:00 10/16/17 08:47 100 MG Fish Oil (Fish Oil) 1,000 mg DAILY 10/15/17 09:00 10/16/17 08:47 1,000 MG Folic Acid (Folic Acid) 1 mg DAILY 10/15/17 09:00 10/16/17 08:47 1 MG Heparin Sodium (Porcine) (Heparin Sodium) 1,300 unit PRN Q6HRS PRN 10/16/17 06:45 10/16/17 06:43 1,300 UNIT Heparin Sodium/ Dextrose 500 ml @ 0 mls/hr CONT PRN 10/14/17 17:45 10/16/17 06:45 17.7 MLS/HR Hydrocortisone (Proctosol-Hc) 1 laine BID 10/14/17 21:30 10/15/17 20:25 1 LAINE Magnesium Hydroxide (Milk Of Magnesia) 2,400 mg DAILY PRN 10/14/17 21:15 10/15/17 14:15 2,400 MG Memantine (Namenda) 10 mg BID 10/14/17 21:30 10/16/17 08:47 10 MG Mirtazapine (Remeron) 15 mg DAILY 10/15/17 09:00 10/16/17 08:47 15 MG Nitroglycerin (Nitrostat) 0.4 mg PRN Q5MIN PRN 10/14/17 21:15 Ondansetron HCl (Zofran) 4 mg PRN Q8HRS PRN 10/14/17 18:00 10/15/17 17:59 DC Sertraline HCl (Zoloft) 50 mg DAILY 10/15/17 09:00 10/16/17 08:47 50 MG Sodium Chloride 1,000 ml @ 125 mls/hr Q8H 10/14/17 17:56 10/14/17 21:05 DC Spironolactone (Aldactone) 25 mg DAILY 10/15/17 09:00 10/16/17 08:47 25 MG Tramadol HCl (Ultram) 50 mg PRN Q6HRS PRN 10/14/17 21:15 Vitamin D (Vitamin D3) 500 unit DAILY 10/15/17 09:00 10/16/17 08:46 500 UNIT Warfarin Sodium (Coumadin Per Pharmacy) 1 each PRN DAILY PRN 10/15/17 13:00 10/16/17 10:01 1 EACH Warfarin Sodium (Coumadin Per Physician) 1 each PRN DAILY PRN 10/14/17 21:30 10/15/17 12:57 DC Warfarin Sodium (Coumadin) 4 mg 1X WARF ONCE 10/16/17 16:00 10/16/17 16:01 LAB Lab: Laboratory Tests Test 10/15/17 14:05 10/16/17 05:10 Heparin Anti-Xa Act, Unfractionated 0.30 IU/mL (0.30-0.70) 0.16 IU/mL (0.30-0.70) White Blood Count 7.3 x10^3/uL (4.0-11.0) Red Blood Count 4.09 x10^6/uL (3.50-5.40) Hemoglobin 12.3 g/dL (12.0-15.5) Hematocrit 38.4 % (36.0-47.0) Mean Corpuscular Volume 94 fL (79-100) Mean Corpuscular Hemoglobin 30 pg (25-35) Mean Corpuscular Hemoglobin Concent 32 g/dL (31-37) Red Cell Distribution Width 15.1 % (11.5-14.5) Platelet Count 174 x10^3/uL (140-400) Neutrophils (%) (Auto) 67 % (31-73) Lymphocytes (%) (Auto) 16 % (24-48) Monocytes (%) (Auto) 11 % (0-9) Eosinophils (%) (Auto) 5 % (0-3) Basophils (%) (Auto) 1 % (0-3) Neutrophils # (Auto) 4.9 x10^3uL (1.8-7.7) Lymphocytes # (Auto) 1.2 x10^3/uL (1.0-4.8) Monocytes # (Auto) 0.8 x10^3/uL (0.0-1.1) Eosinophils # (Auto) 0.3 x10^3/uL (0.0-0.7) Basophils # (Auto) 0.1 x10^3/uL (0.0-0.2) Prothrombin Time 20.0 SEC (11.7-14.0) Prothromb Time International Ratio 1.8 (0.8-1.1) Sodium Level 142 mmol/L (136-145) Potassium Level 4.3 mmol/L (3.5-5.1) Chloride Level 108 mmol/L (98-107) Carbon Dioxide Level 24 mmol/L (21-32) Anion Gap 10 (6-14) Blood Urea Nitrogen 29 mg/dL (7-20) Creatinine 1.4 mg/dL (0.6-1.0) Estimated GFR (Cockcroft-Gault) 35.7 BUN/Creatinine Ratio 21 (6-20) Glucose Level 85 mg/dL (70-99) Calcium Level 9.1 mg/dL (8.5-10.1) Magnesium Level 2.1 mg/dL (1.8-2.4) Total Bilirubin 0.6 mg/dL (0.2-1.0) Aspartate Amino Transf (AST/SGOT) 19 U/L (15-37) Alanine Aminotransferase (ALT/SGPT) 22 U/L (14-59) Alkaline Phosphatase 83 U/L (46-116) Total Protein 6.4 g/dL (6.4-8.2) Albumin 3.0 g/dL (3.4-5.0) Albumin/Globulin Ratio 0.9 (1.0-1.7) DA BALES MD Oct 16, 2017 11:13
--- NOTE | 2017-10-16 11:26 | HP ---
ADMIT DATE: 10/14/2017 CHIEF COMPLAINT AND HISTORY OF PRESENT ILLNESS: This 87-year-old white female, patient of Dr. Sampson, is from a long term, was brought in for evaluation for rapid heart rate. She is known to have a history of atrial fibrillation with anticoagulation being discontinued at some point in the past. She also has not been getting her medicines apparently as the daughter has found out that she has refused them, which the long term has allowed to do despite the dementia. She was found to be in atrial fibrillation with rapid ventricular response and elevated troponin, admitted to the hospital. PAST MEDICAL HISTORY: Remarkable for atrial fibrillation, coronary artery disease, dementia, heart failure, depression, hyperlipidemia, gastroesophageal reflux disease, hypertension, prior myocardial infarction, renal disease, urinary tract infection. She has a history of endocarditis and osteoporosis. PAST SURGICAL HISTORY: Remarkable for mitral valve replacement and a pacemaker, which has been removed, and some skin cancers. MEDICATIONS: Brought with the patient, listed on the computer and have been addressed. ALLERGIES: SHE LISTS ALLERGIES BETA BLOCKERS, CALCIUM CHANNEL BLOCKERS, SULFA, TRIMETHOPRIM AND AMBIEN. SOCIAL HISTORY: She is a nonsmoker, nondrinker, does not abuse drugs. Lives in a long term. FAMILY HISTORY: Noncontributory. REVIEW OF SYSTEMS: Essentially unremarkable, although the patient is obviously confused. She denies any specific complaints. PHYSICAL EXAMINATION: GENERAL: She is a well-developed, well-nourished, pleasant white female, appearing in no acute distress. VITAL SIGNS: Unremarkable with the exception of a pulse of 110, in AFib at the time of my examination. HEAD, EYES, EARS, NOSE, THROAT: Unremarkable. NECK: Supple, without lymphadenopathy or thyromegaly. CHEST: Clear to auscultation and percussion. HEART: Irregularly irregular, tachycardic without S3, S4 or murmur. ABDOMEN: Soft, nontender, without hepatosplenomegaly or masses. EXTREMITIES: Without cyanosis, clubbing or edema. NEUROLOGIC: Remarkable for the dementia. IMPRESSION: Atrial fibrillation with a rapid ventricular response and non-ST elevated myocardial infarction with elevated troponin. PLAN: The patient has been admitted. Cardiology will be consulted. She will be placed on telemetry, monitored, managed and treated appropriately. DA BALES MD DR: EMMANUEL/patsy JOB#: [id number] / [id number]
[2017-10-16 11:30] VITALS: BP 161/77
--- NOTE | 2017-10-16 14:37 | PDOC ---
CARDIOLOGY PROGRESS NOTE SUBJECTIVE: No acute events overnight. mild tachy this a.m. OBJECTIVE: Vital SIgns: Vital Signs Date Time Temp Pulse Resp B/P (MAP) Pulse Ox O2 Delivery O2 Flow Rate FiO2 10/16/17 11:30 90 18 161/77 (105) Room Air 10/16/17 07:00 98.7 92 98.7 I & O Intake and Output 10/16/17 07:00 Intake Total 660 ml Balance 660 ml Intake Oral 660 ml # Voids 7 Objective: Alert to self and place Frail elderly woman Irr irr. Good valve click noted soft abd Decreased breath sounds CURRENT MEDICATIONS: Meds reviewed. Warfarin hep gtt Spironolactone ASSESSMENT: 1. Permanent atrial fibrillation with inadequate rate control 2. S/p Mech mitral valve 3. HTN - labile Problems: PLAN: 1. Continue cardizem. 2. Restart dig 0.125mg daily in a.m. IV dig load performed today. 3. Supportive care. Continue hep gtt until INR therapeutic. Thanks. Will follow. MARY BELLO MD Oct 16, 2017 14:37
[2017-10-16 15:30] VITALS: BP 114/54
[2017-10-16] MEDS ORDERED: WARFARIN 4 MG TABLET. PO ONE (16:00)
--- NOTE | 2017-10-16 16:15 | CARD ---
APPROVED REPORT EXAM: Two-dimensional and M-mode echocardiogram with Doppler and color Doppler. Other Information Quality : Technically Limited Rhythm : Atrial FlutterTechnically limited study due to positioning. INDICATION Atrial Fibrillation 2D DIMENSIONS RVDd2.3 (2.9-3.5cm)Left Atrium(2D)5.0 (1.6-4.0cm) IVSd1.1 (0.7-1.1cm)Aortic Root(2D)2.5 (2.0-3.7cm) LVDd3.9 (3.9-5.9cm)LVOT Diameter2.0 (1.8-2.4cm) PWd1.1 (0.7-1.1cm)LVDs3.6 (2.5-4.0cm) FS (%) 8.1 %SV12.3 ml LVEF(%)18.3 (>50%) Aortic Valve AoV Peak Andrew.231.7cm/sAoV VTI48.9cm AO Peak GR.21.5mmHgLVOT VTI 11.92cm AO Mean GR.12mmHgAVA (VTI)1.60cm2 AI P 1/2 [id number] Mitral Valve MV E Peak Gr.9mmHgMV E Mean Gr.5mmHg MV [id number] (PHT)2.44cm2 Tricuspid Valve TR P. [id number]/sRAP [id number] TR Peak Gr.05bwWxZVWE73xpHr LEFT VENTRICLE The left ventricle is normal size. There is normal left ventricular wall thickness. Left ventricle sy stolic function is severely impaired. The Ejection Fraction is <20%. Septal motion consistent with co nduction abnormality. There is global hypokinesis of the left ventricle. Tissue Doppler imaging revea ls moderate left ventricular diastolic dysfunction. RIGHT VENTRICLE The right ventricle is normal size. The right ventricular systolic function is normal. ATRIA The left atrium is severely dilated. The right atrium appears dilated. The interatrial septum is inta ct with no evidence for an atrial septal defect or patent foramen ovale as noted on 2-D or Doppler im aging. AORTIC VALVE The aortic valve is moderately calcified. Doppler and Color Flow revealed mild aortic regurgitation. Calculated aortic valve area is 1.6 cm2 with maximum pressure gradient of 22 mmHg and mean pressure g radient of 12 mmHg. MITRAL VALVE Maximum pressure gradient of 9 mmHg and mean pressure gradient of 5 mmHg across the prosthesis. Doppl er and Color Flow revealed trace to mild mitral regurgitation. 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 Th e prosthetic mitral valve is not well visualized due to imaging artifacts from the prosthesis. TRICUSPID VALVE The tricuspid valve is normal in structure and function. Doppler and Color Flow revealed moderate tri cuspid regurgitation. The PA pressure was estimated at 46 mmHg. There is no tricuspid valve stenosis. PULMONIC VALVE The pulmonic valve is not well visualized. Doppler and Color Flow revealed no pulmonic valvular regur gitation. There is no pulmonic valvular stenosis. GREAT VESSELS The aortic root is normal in size. Pulmonary veins not recorded. The IVC is dilated and collapses >50 % with inspiration. PERICARDIAL EFFUSION There is moderate pleural effusion. There is no evidence of significant pericardial effusion. Critical Notification Date: 10/15/2017 Time: 15:37 Other Discipline : KARLY Talamantes Critical Value: Yes <Conclusion> Left ventricle systolic function is severely impaired. The Ejection Fraction is <20%. Septal motion consistent with conduction abnormality. There is global hypokinesis of the left ventric le. Calculated aortic valve area is 1.6 cm2 with maximum pressure gradient of 22 mmHg and mean pressure g radient of 12 mmHg. 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 The prosthetic mitral valve is not well visualized due to imaging artifacts from the prosthesis. Maximum pressure gradient of 9 mmHg and mean pressure gradient of 5 m mHg across the prosthesis. Doppler and Color Flow revealed moderate tricuspid regurgitation. The PA pressure was estimated at 46 mmHg. There is moderate pleural effusion.
[2017-10-16 19:00] VITALS: BP 121/69
[2017-10-16] MEDS: traMADol 50 MG TABLET PO PRN (20:31)
[2017-10-16 23:00] VITALS: BP 173/72
[2017-10-17 03:00] VITALS: BP 145/66
[2017-10-17] MEDS: traMADol 50 MG TABLET PO PRN (03:15)
[2017-10-17 05:35] LABS: PROTHROMBIN TIME PATIENT 29.3 SEC (11.7-14.0)
[2017-10-17 07:00] VITALS: BP 139/67
[2017-10-17] MEDS: SERTRALINE 50 MG TABLET. PO SCH (08:46)
[2017-10-17] MEDS: FOLIC ACID 1 MG TABLET. PO SCH (08:48)
[2017-10-17] MEDS: CHOLECALCIFEROL (VITAMIN D3) 1,000 UNIT TABLET PO SCH (08:48)
[2017-10-17] MEDS: OMEGA-3 FATTY ACIDS/FISH OIL 1,000 MG CAPSULE. PO SCH (08:48)
[2017-10-17] MEDS: ASPIRIN ENTERIC COATED 325 MG TABLET.DR. PO SCH (08:48)
[2017-10-17] MEDS: MIRTAZAPINE 15 MG TABLET PO SCH (08:48)
[2017-10-17] MEDS: CALCIUM CARB/VIT D3 500/200 TABLET. PO SCH ×2 (08:48→16:03)
[2017-10-17] MEDS: DIGOXIN 125 MCG TABLET. PO SCH (08:49)
[2017-10-17] MEDS: MEMANTINE 10 MG TABLET. PO SCH ×2 (08:49→20:39)
[2017-10-17] MEDS: SPIRONOLACTONE 25 MG TABLET PO SCH (08:49)
[2017-10-17] MEDS: DOCUSATE SODIUM 100 MG CAPSULE. PO SCH (08:49)
[2017-10-17] MEDS: HYDROCORTISONE 2.5% RECTAL CREAM 30GM TUBE. RC SCH ×2 (08:50→20:40)
--- NOTE | 2017-10-17 10:30 | PDOC ---
CARDIOLOGY PROGRESS NOTE SUBJECTIVE: no new events overnight. OBJECTIVE: Vital SIgns: Vital Signs Date Time Temp Pulse Resp B/P (MAP) Pulse Ox O2 Delivery O2 Flow Rate FiO2 10/17/17 08:50 110 147/64 10/17/17 07:00 98.4 22 95 Room Air 98.4 I & O Intake and Output 10/17/17 06:59 Intake Total 1654 ml Output Total 60 ml Balance 1594 ml Intake Oral 1230 ml IV Total 424 ml Output Urine Total 60 ml # Voids 7 # Bowel Movements 1 Objective: Mildly disoriented No significant changes to exam. stable. CURRENT MEDICATIONS: Current Medications Medications (Trade) Dose Ordered Sig/Alan Start Time Stop Time Status Last Admin Dose Admin Acetaminophen (Acetaminophen Supp) 650 mg PRN Q4HRS PRN 10/15/17 00:00 Al Hydroxide/Mg Hydroxide (Mylanta Plus Xs) 30 ml PRN Q2HR PRN 10/14/17 21:15 Aspirin (Children'S Aspirin) 324 mg 1X ONCE 10/14/17 16:15 10/14/17 16:16 DC Aspirin (Ecotrin) 325 mg DAILY 10/15/17 09:00 10/17/17 08:48 325 MG Bisacodyl (Dulcolax Supp) 10 mg PRN DAILY PRN 10/14/17 21:15 Calcium/Vitamin D (Oscal D 500mg/ 200uts) 1 tab BIDWMEALS 10/15/17 08:00 10/17/17 08:48 1 TAB Digoxin (Lanoxin) 125 mcg DAILY 10/17/17 09:00 10/17/17 08:49 125 MCG Diltiazem HCl (Cardizem 24hr Cd) 180 mg DAILY 10/15/17 09:00 10/17/17 08:50 180 MG Diltiazem HCl (Cardizem) 10 mg 1X ONCE 10/14/17 17:30 10/14/17 17:31 DC 10/14/17 17:28 10 MG Diltiazem HCl 125 mg/Dextrose 125 ml @ 0 mls/hr CONT PRN 10/14/17 16:30 10/15/17 12:55 DC 10/15/17 04:42 10 MLS/HR Docusate Sodium (Colace) 100 mg DAILY 10/15/17 09:00 10/17/17 08:49 100 MG Fish Oil (Fish Oil) 1,000 mg DAILY 10/15/17 09:00 10/17/17 08:48 1,000 MG Folic Acid (Folic Acid) 1 mg DAILY 10/15/17 09:00 10/17/17 08:48 1 MG Heparin Sodium (Porcine) (Heparin Sodium) 1,300 unit PRN Q6HRS PRN 10/16/17 06:45 10/16/17 06:43 1,300 UNIT Heparin Sodium/ Dextrose 500 ml @ 0 mls/hr CONT PRN 10/14/17 17:45 10/16/17 06:45 17.7 MLS/HR Hydrocortisone (Proctosol-Hc) 1 laine BID 10/14/17 21:30 10/17/17 08:50 1 LAINE Magnesium Hydroxide (Milk Of Magnesia) 2,400 mg DAILY PRN 10/14/17 21:15 10/15/17 14:15 2,400 MG Memantine (Namenda) 10 mg BID 10/14/17 21:30 10/17/17 08:49 10 MG Mirtazapine (Remeron) 15 mg DAILY 10/15/17 09:00 10/17/17 08:48 15 MG Nitroglycerin (Nitrostat) 0.4 mg PRN Q5MIN PRN 10/14/17 21:15 Ondansetron HCl (Zofran) 4 mg PRN Q8HRS PRN 10/14/17 18:00 10/15/17 17:59 DC Sertraline HCl (Zoloft) 50 mg DAILY 10/15/17 09:00 10/17/17 08:46 50 MG Sodium Chloride 1,000 ml @ 125 mls/hr Q8H 10/14/17 17:56 10/14/17 21:05 DC Spironolactone (Aldactone) 25 mg DAILY 10/15/17 09:00 10/17/17 08:49 25 MG Tramadol HCl (Ultram) 50 mg PRN Q6HRS PRN 10/14/17 21:15 10/17/17 03:15 50 MG Vitamin D (Vitamin D3) 500 unit DAILY 10/15/17 09:00 10/17/17 08:48 500 UNIT Warfarin Sodium (Coumadin Per Pharmacy) 1 each PRN DAILY PRN 10/15/17 13:00 10/17/17 09:24 1 EACH Warfarin Sodium (Coumadin Per Physician) 1 each PRN DAILY PRN 10/14/17 21:30 10/15/17 12:57 DC Warfarin Sodium (Coumadin) 1 mg 1X WARF ONCE 10/17/17 16:00 10/17/17 16:01 ASSESSMENT: 1. Acute on chronic systolic HF 2. permanent afib with controlled rate now 3. [facility] mitral valve. Problems: PLAN: 1. Will stop cardizem given CMP 2. Start metoprolol 25mg tid 3. Continue digoxin and coumadin 4. Will need monitoring on an outpt basis through her facility/hospice care for INR and dig levels and renal function. Pls call with questions. THanks. MARY BELLO MD Oct 17, 2017 10:30
[2017-10-17 10:36] VITALS: BP 148/79
--- NOTE | 2017-10-17 11:01 | PDOC ---
GENERAL General: vss and afebrile. resting quietly. remains a-fib with rate in 90's currently. chest clear and abdomen benign. INR 3.0 this am and heparin may be dced. cardiology starting metropolol today and stopping cardizem, both of which are listed as allergies. will continue to monitor with likely dc back to [facility] in am. Problems: VITAL SIGNS Vital Signs: Vital Signs Date Time Temp Pulse Resp B/P (MAP) Pulse Ox O2 Delivery O2 Flow Rate FiO2 10/17/17 10:36 96.7 92 18 148/79 (102) 95 Room Air 96.7 I & O I & O Intake and Output 10/17/17 07:00 Intake Total 1654 ml Output Total 60 ml Balance 1594 ml Intake Oral 1230 ml IV Total 424 ml Output Urine Total 60 ml # Voids 7 # Bowel Movements 1 ALLERGIES Allergies: Allergies Coded Allergies Type Severity Reaction Last Updated Verified sulfamethoxazole Allergy Intermediate 09/08/16 Yes trimethoprim Allergy Intermediate 09/08/16 Yes zolpidem Allergy Intermediate 06/23/14 Yes Beta-Blockers (Beta-Adrenergic Bloc Adverse Reaction Severe has cardiac pauses 12/30/16 Yes Calcium Channel Blocking Agent Dilt Adverse Reaction Severe has cardiac pauses 12/30/16 Yes MEDS Medications: Current Medications Medications (Trade) Dose Ordered Sig/Alan Start Time Stop Time Status Last Admin Dose Admin Acetaminophen (Acetaminophen Supp) 650 mg PRN Q4HRS PRN 10/15/17 00:00 Al Hydroxide/Mg Hydroxide (Mylanta Plus Xs) 30 ml PRN Q2HR PRN 10/14/17 21:15 Amlodipine Besylate (Norvasc) 10 mg DAILY 10/17/17 11:00 Aspirin (Children'S Aspirin) 324 mg 1X ONCE 10/14/17 16:15 10/14/17 16:16 DC Aspirin (Ecotrin) 325 mg DAILY 10/15/17 09:00 10/17/17 08:48 325 MG Bisacodyl (Dulcolax Supp) 10 mg PRN DAILY PRN 10/14/17 21:15 Calcium/Vitamin D (Oscal D 500mg/ 200uts) 1 tab BIDWMEALS 10/15/17 08:00 10/17/17 08:48 1 TAB Digoxin (Lanoxin) 125 mcg DAILY 10/17/17 09:00 10/17/17 08:49 125 MCG Diltiazem HCl (Cardizem 24hr Cd) 180 mg DAILY 10/15/17 09:00 10/17/17 10:27 DC 10/17/17 08:50 180 MG Diltiazem HCl (Cardizem) 10 mg 1X ONCE 10/14/17 17:30 10/14/17 17:31 DC 10/14/17 17:28 10 MG Diltiazem HCl 125 mg/Dextrose 125 ml @ 0 mls/hr CONT PRN 10/14/17 16:30 10/15/17 12:55 DC 10/15/17 04:42 10 MLS/HR Docusate Sodium (Colace) 100 mg DAILY 10/15/17 09:00 10/17/17 08:49 100 MG Fish Oil (Fish Oil) 1,000 mg DAILY 10/15/17 09:00 10/17/17 08:48 1,000 MG Folic Acid (Folic Acid) 1 mg DAILY 10/15/17 09:00 10/17/17 08:48 1 MG Heparin Sodium (Porcine) (Heparin Sodium) 1,300 unit PRN Q6HRS PRN 10/16/17 06:45 10/16/17 06:43 1,300 UNIT Heparin Sodium/ Dextrose 500 ml @ 0 mls/hr CONT PRN 10/14/17 17:45 10/16/17 06:45 17.7 MLS/HR Hydrocortisone (Proctosol-Hc) 1 laine BID 10/14/17 21:30 10/17/17 08:50 1 LAINE Magnesium Hydroxide (Milk Of Magnesia) 2,400 mg DAILY PRN 10/14/17 21:15 10/15/17 14:15 2,400 MG Memantine (Namenda) 10 mg BID 10/14/17 21:30 10/17/17 08:49 10 MG Metoprolol Tartrate (Lopressor) 25 mg TID 10/17/17 14:00 Mirtazapine (Remeron) 15 mg DAILY 10/15/17 09:00 10/17/17 08:48 15 MG Nitroglycerin (Nitrostat) 0.4 mg PRN Q5MIN PRN 10/14/17 21:15 Ondansetron HCl (Zofran) 4 mg PRN Q8HRS PRN 10/14/17 18:00 11/22/17 17:59 DC Sertraline HCl (Zoloft) 50 mg DAILY 10/15/17 09:00 10/17/17 08:46 50 MG Sodium Chloride 1,000 ml @ 125 mls/hr Q8H 10/14/17 17:56 10/14/17 21:05 DC Spironolactone (Aldactone) 25 mg DAILY 10/15/17 09:00 10/17/17 08:49 25 MG Tramadol HCl (Ultram) 50 mg PRN Q6HRS PRN 10/14/17 21:15 10/17/17 03:15 50 MG Vitamin D (Vitamin D3) 500 unit DAILY 10/15/17 09:00 10/17/17 08:48 500 UNIT Warfarin Sodium (Coumadin Per Pharmacy) 1 each PRN DAILY PRN 10/15/17 13:00 10/17/17 09:24 1 EACH Warfarin Sodium (Coumadin Per Physician) 1 each PRN DAILY PRN 10/14/17 21:30 10/15/17 12:57 DC Warfarin Sodium (Coumadin) 1 mg 1X WARF ONCE 10/17/17 16:00 10/17/17 16:01 LAB Lab: Laboratory Tests Test 10/16/17 11:23 10/16/17 17:32 10/17/17 05:00 Heparin Anti-Xa Act, Unfractionated 0.55 IU/mL (0.30-0.70) 0.41 IU/mL (0.30-0.70) 0.33 IU/mL (0.30-0.70) Prothrombin Time 29.3 SEC (11.7-14.0) Prothromb Time International Ratio 3.0 (0.8-1.1) Nutrition Consultation Dietary Evaluation: Recommendations by RD: Increase Calorie Intake, Add supplement feedings Comments: Encouraged good PO intake Will add Ensure TID Expected Outcomes/Goals: PO intake/supplement intake to meet > 75% est needs Malnutrition Findings: Food and Nutrition Intake (Mod: <75% est energy req 7days Body Fat Depletion (Non Severe: Mild Depletion Weight Status: Appropriate DA BALES MD Oct 17, 2017 11:01
[2017-10-17] MEDS: amLODIPine BESYLATE 10 MG TABLET PO SCH (12:24)
[2017-10-17 15:00] VITALS: BP 140/67
[2017-10-17] MEDS ORDERED: WARFARIN 1 MG TABLET. PO ONE (16:00)
[2017-10-17] MEDS: METOPROLOL TART IMMED RELEASE 25 MG TABLET. PO SCH ×2 (16:04→20:39)
[2017-10-17 19:00] VITALS: BP 129/63
[2017-10-17 22:05] VITALS: BP 160/65
[2017-10-18 03:00] VITALS: BP 156/67
[2017-10-18 05:25] LABS: INR 3.3 (0.8-1.1); PROTHROMBIN TIME PATIENT 31.8 SEC (11.7-14.0)
[2017-10-18 07:00] VITALS: BP 147/59
[2017-10-18] MEDS: OMEGA-3 FATTY ACIDS/FISH OIL 1,000 MG CAPSULE. PO SCH (08:54)
[2017-10-18] MEDS: amLODIPine BESYLATE 10 MG TABLET PO SCH (08:54)
[2017-10-18] MEDS: ASPIRIN ENTERIC COATED 325 MG TABLET.DR. PO SCH (08:54)
[2017-10-18] MEDS: MIRTAZAPINE 15 MG TABLET PO SCH (08:54)
[2017-10-18] MEDS: CALCIUM CARB/VIT D3 500/200 TABLET. PO SCH ×2 (08:54→17:00)
[2017-10-18] MEDS: MEMANTINE 10 MG TABLET. PO SCH ×2 (08:54→21:11)
[2017-10-18] MEDS: DOCUSATE SODIUM 100 MG CAPSULE. PO SCH (08:54)
[2017-10-18] MEDS: DIGOXIN 125 MCG TABLET. PO SCH (08:55)
[2017-10-18] MEDS: CHOLECALCIFEROL (VITAMIN D3) 1,000 UNIT TABLET PO SCH (08:55)
[2017-10-18] MEDS: SERTRALINE 50 MG TABLET. PO SCH (08:55)
[2017-10-18] MEDS: SPIRONOLACTONE 25 MG TABLET PO SCH (08:55)
[2017-10-18] MEDS: FOLIC ACID 1 MG TABLET. PO SCH (09:00)
[2017-10-18] MEDS: METOPROLOL TART IMMED RELEASE 25 MG TABLET. PO SCH ×2 (09:00→10:11)
[2017-10-18] MEDS: HYDROCORTISONE 2.5% RECTAL CREAM 30GM TUBE. RC SCH ×2 (09:00→21:11)
[2017-10-18 11:00] VITALS: BP 115/65
--- NOTE | 2017-10-18 11:21 | DISCH ---
DISCHARGE FINAL DIAGNOSIS Problems Medical Problems: (1) Atrial fibrillation with RVR Status: Acute (2) Tachycardia Status: Acute CONDITION ON DISCHARGE: Stable ADMIT TO LTAC: Yes POST DISCHARGE ORDERS ACTIVITY ORDERS: Activity as tolerated DIET AFTER DISCHARGE: Cardiac FOLLOW-UP PHYSICIAN FOLLOW-UP: per Bimal garces DAVID B MD Oct 18, 2017 11:21
--- NOTE | 2017-10-18 11:24 | PDOC ---
Provider Note Provider Note [id number] MADHAV ROME MD Oct 18, 2017 11:24
--- NOTE | 2017-10-18 11:45 | PDOC ---
Provider Note Provider Note Discussed meds with RN. Will continue digoxin at 0.125mg daily Hospice to follow up prn. Metoprolol oral prn for HR > 110. no standing dose given that patient was bradycardic overnight. MARY BELLO MD Oct 18, 2017 11:45
[2017-10-18 15:00] VITALS: BP 99/40
--- NOTE | 2017-10-18 15:23 | DS ---
DATE OF DISCHARGE: 10/18/2017 HOSPITAL SUMMARY: A patient of Dr. Portillo, who came in with atrial fibrillation and rapid ventricular response with a history of dementia and mechanical mitral valve. She was given oral meds to control this after the IV diltiazem was done and her troponin was elevated at 0.31, but no interventions were accomplished. INR is 3.3 at this time. CBC and chemistry profile unremarkable, with a mildly decreased GFR of 35. Echocardiogram showed a low ejection fraction of 20%, consistent with previous known disease. She has got moderate calcifications of the aortic valve and mechanical mitral valve present. She is a DNR patient given her underlying dementia. FINAL DIAGNOSES: 1. Atrial fibrillation with rapid ventricular response. 2. Severe systolic congestive heart failure. 3. Mechanical heart valve. 4. Dementia. 5. Chronic kidney disease 3. OPERATIONS, PROCEDURES AND COMPLICATIONS: None. CONSULTATIONS: Dr. Ewing. DISPOSITION: All home meds remain the same, with warfarin levels targeting an INR of 2.5 to 3.5. She remains a DNR, on comfort care measures. Regular diet and prognosis is guarded. MADHAV ROME MD DR: KADEN/patsy JOB#: [id number] / [id number]
[2017-10-18 19:58] VITALS: BP 97/43
[2017-10-18 22:48] VITALS: BP 119/70
[2017-10-19 03:06] VITALS: BP 165/96
[2017-10-19 04:12] LABS: INR 2.9 (0.8-1.1); PROTHROMBIN TIME PATIENT 28.9 SEC (11.7-14.0)
[2017-10-19 07:36] VITALS: BP 136/64
[2017-10-19] MEDS: DIGOXIN 125 MCG TABLET. PO SCH (08:12)
[2017-10-19] MEDS: SERTRALINE 50 MG TABLET. PO SCH (08:12)
[2017-10-19] MEDS: MEMANTINE 10 MG TABLET. PO SCH ×2 (08:13→20:38)
[2017-10-19] MEDS: amLODIPine BESYLATE 10 MG TABLET PO SCH (08:14)
[2017-10-19] MEDS: SPIRONOLACTONE 25 MG TABLET PO SCH (08:15)
[2017-10-19] MEDS: ASPIRIN ENTERIC COATED 325 MG TABLET.DR. PO SCH (08:15)
[2017-10-19] MEDS: FOLIC ACID 1 MG TABLET. PO SCH (08:15)
[2017-10-19] MEDS: CALCIUM CARB/VIT D3 500/200 TABLET. PO SCH ×2 (08:15→17:00)
[2017-10-19] MEDS: OMEGA-3 FATTY ACIDS/FISH OIL 1,000 MG CAPSULE. PO SCH (08:15)
[2017-10-19] MEDS: CHOLECALCIFEROL (VITAMIN D3) 1,000 UNIT TABLET PO SCH (08:15)
[2017-10-19] MEDS: DOCUSATE SODIUM 100 MG CAPSULE. PO SCH (08:23)
[2017-10-19] MEDS: HYDROCORTISONE 2.5% RECTAL CREAM 30GM TUBE. RC SCH ×2 (08:24→20:39)
--- NOTE | 2017-10-19 08:58 | PDOC ---
Provider Note Provider Note dc delayed re placement- off metoprolol she has some af/rvr, got 2 dose of metop 4 hrs apart on 10/17 prior to her caroline episode, so will resume metop as 25 bid only , add TSH - digoxin also on board- MADHAV ROME MD Oct 19, 2017 08:58
[2017-10-19] MEDS: METOPROLOL TART IMMED RELEASE 25 MG TABLET. PO SCH ×2 (09:14→20:39)
[2017-10-19] MEDS: MIRTAZAPINE 15 MG TABLET PO SCH (09:14)
[2017-10-19 11:00] VITALS: BP 103/43
[2017-10-19 14:58] VITALS: BP 104/48
[2017-10-19] MEDS ORDERED: WARFARIN 3 MG TABLET. PO ONE (16:00)
[2017-10-19 19:10] VITALS: BP 106/49
[2017-10-19 22:35] VITALS: BP 115/57
[2017-10-20 03:00] VITALS: BP 116/60
[2017-10-20 05:16] LABS: INR 2.3 (0.8-1.1); PROTHROMBIN TIME PATIENT 23.5 SEC (11.7-14.0)
[2017-10-20 07:00] VITALS: BP 121/59
--- NOTE | 2017-10-20 08:33 | PDOC ---
Provider Note Provider Note vss, rate better- tsh ok, tolerating lower dose metop ok re rate, inr good, could dc when placement ok MADHAV ROME MD Oct 20, 2017 08:33
[2017-10-20] MEDS: HYDROCORTISONE 2.5% RECTAL CREAM 30GM TUBE. RC SCH (09:00)
[2017-10-20] MEDS: ASPIRIN ENTERIC COATED 325 MG TABLET.DR. PO SCH (10:00)
[2017-10-20] MEDS: MIRTAZAPINE 15 MG TABLET PO SCH (10:00)
[2017-10-20] MEDS: SERTRALINE 50 MG TABLET. PO SCH (10:00)
[2017-10-20] MEDS: OMEGA-3 FATTY ACIDS/FISH OIL 1,000 MG CAPSULE. PO SCH (10:00)
[2017-10-20] MEDS: DIGOXIN 125 MCG TABLET. PO SCH (10:01)
[2017-10-20] MEDS: amLODIPine BESYLATE 10 MG TABLET PO SCH (10:01)
[2017-10-20] MEDS: DOCUSATE SODIUM 100 MG CAPSULE. PO SCH (10:01)
[2017-10-20] MEDS: CALCIUM CARB/VIT D3 500/200 TABLET. PO SCH ×2 (10:01→17:19)
[2017-10-20] MEDS: METOPROLOL TART IMMED RELEASE 25 MG TABLET. PO SCH (10:01)
[2017-10-20] MEDS: FOLIC ACID 1 MG TABLET. PO SCH (10:01)
[2017-10-20] MEDS: SPIRONOLACTONE 25 MG TABLET PO SCH (10:01)
[2017-10-20] MEDS: MEMANTINE 10 MG TABLET. PO SCH (10:01)
[2017-10-20] MEDS: CHOLECALCIFEROL (VITAMIN D3) 1,000 UNIT TABLET PO SCH (10:02)
[2017-10-20 11:00] VITALS: BP_SYST 104; BP_SYST 114; BP_DIAS 48; BP_DIAS 49
[2017-10-20] MEDS ORDERED: WARFARIN 3 MG TABLET. PO ONE (16:00)
--- NOTE | 2017-10-21 09:05 | CONS ---
DATE OF CONSULTATION: 10/20/2017 REASON FOR VISIT: Verification of hospice benefit and need. CLINICAL COURSE: This patient is an 87-year-old female who [facility]. She had previously been on hospice for ongoing coronary artery disease. On this admission, the patient revoked hospice due to a family member realizing that the patient had not been taking medication. This was not intended and the patient did not have capacity to accept or refuse medications. Apparently, nursing facility thought the patient was able to refuse medication and patient had not taken medication for over a week. As a result of this, the patient was in rapid response atrial fibrillation and progressed to have a non-ST elevated AZ and ongoing congestive heart failure. She was treated in the hospital and stabilized, but continued to have a severely poor prognosis with less than 6-month life expectancy. At this point, the family did understand and wish to proceed with hospice care again with understanding that the patient will not return to the hospital for congestive heart failure or coronary artery issues and will remain a do not resuscitate. At this point, it is deemed the patient is appropriate for hospice due to congestive heart failure with ejection fraction less than 20%, coronary artery disease with recent non-ST elevated AZ, ongoing dementia, protein malnutrition, chronic kidney disease stage 3 and aortic valve replacement with mechanical valve. The patient is not on oxygen, but becomes extremely short of breath with any activity and because extremely fatigued with even attempts at transferring. The patient is functionally bedbound and needs assistance with all ADLs except feeding herself. In my opinion, this patient has less than 6-month life expectancy and per family request and acceptance, does not want restorative measures but does continue to want medical treatment for chronic medical diseases. She will proceed with hospice care as recommended. JESSICA CHOI MD DR: NEREIDA/patsy JOB#: [id number] / [id number]
== END 2017-10-20 18:34 | disposition hospice, inpatient (51) | DRG 280 ==
LOC: ER 16:09 → 2 NORTH 18:31
PROVIDERS: ADMIT Internal Medicine; ATTEND Internal Medicine
DX: I21.4 Non-ST elevation (NSTEMI) myocardial infarction (principal); I50.43 Acute on chronic combined systolic (congestive) and diastolic (congestive) heart failure; E46 Unspecified protein-calorie malnutrition; I48.2 Chronic atrial fibrillation; I49.5 Sick sinus syndrome; F03.90 Unspecified dementia, unspecified severity, without behavioral disturbance, psychotic disturbance, mood disturbance, and anxiety; E78.5 Hyperlipidemia, unspecified; F32.9 Major depressive disorder, single episode, unspecified; I13.0 Hypertensive heart and chronic kidney disease with heart failure and stage 1 through stage 4 chronic kidney disease, or unspecified chronic kidney disease; Z68.1 Body mass index [BMI] 19.9 or less, adult; I25.2 Old myocardial infarction; K21.9 Gastro-esophageal reflux disease without esophagitis; M81.0 Age-related osteoporosis without current pathological fracture; N18.3 Chronic kidney disease, stage 3 (moderate); F41.9 Anxiety disorder, unspecified; M19.90 Unspecified osteoarthritis, unspecified site; Z66 Do not resuscitate; I25.10 Atherosclerotic heart disease of native coronary artery without angina pectoris; N28.9 Disorder of kidney and ureter, unspecified; Z79.01 Long term (current) use of anticoagulants; Z82.49 Family history of ischemic heart disease and other diseases of the circulatory system; Z85.828 Personal history of other malignant neoplasm of skin; Z86.73 Personal history of transient ischemic attack (TIA), and cerebral infarction without residual deficits; Z95.2 Presence of prosthetic heart valve; Z87.440 Personal history of urinary (tract) infections; Z74.01 Bed confinement status
CPT/HCPCS: 36415; 71010; 80053; 80162; 82962; 83735; 84443; 84484; 85025; 85520; 85610; 93005; 93306; 96361; 96374; 96376; 99292; J1160; J1644; J3490; J7030; 99291-25

== ENCOUNTER 2017-11-11 00:50 | Emergency (ER) | payer BC ==
[~2017-11-11] VITALS: Ht 167.6 cm; Wt 48.5 kg
[~2017-11-11 00:50] MED LIST changes: +ASPI325T11 PO; +DOCU100C28 PO; -IV NORMAL SALINE 1000ML BAG 1,000 ML IV SCH; +TRAM50TA PO
--- NOTE | 2017-11-11 01:04 | PHYS DOC ---
Past Medical History Past Medical History: A-Fib, CAD, CHF, Dementia, Depression, GERD, High Cholesterol, Heart Disease, Hypertension, [place], Renal Disease, UTI Additional Past Medical Histor: ENDOCARDITIS, OSTEOPOROSIS Past Medical History HOSPICE SEP 2017 FOR CHF/CAD. DNR Past Surgical History: Pacemaker, Other Additional Past Surgical Histo: MITRAL VALVE REPLACEMENT, Pacemaker removed, Skin CA removed Additional Information: NON SMOKER Alcohol Use: None Drug Use: None Social History Narrative: LIVES IN [facility] Adult General Chief Complaint Chief Complaint: MECHANICAL FALL HPI HPI Patient is a 87 year old female who presents with fall. Unwitnessed. She is bedbound but apparently does get up and try to ambulate by herself. She was found on the couch. She has a skin tear to left arm and left arm pain and swelling. She was recently placed on hospice 10/21/17 for CHF and CAD. Review of Systems Review of Systems PATIENT UNABLE TO ANSWER DUE TO DEMENTIA AND DEBILITATED STATE All other systems were reviewed and found to be within normal limits, except as documented in this note. Allergies Allergies Allergies Coded Allergies Type Severity Reaction Last Updated Verified sulfamethoxazole Allergy Intermediate 09/08/16 Yes trimethoprim Allergy Intermediate 09/08/16 Yes zolpidem Allergy Intermediate 06/23/14 Yes Beta-Blockers (Beta-Adrenergic Bloc Adverse Reaction Severe has cardiac pauses 12/30/16 Yes Calcium Channel Blocking Agent Dilt Adverse Reaction Severe has cardiac pauses 12/30/16 Yes Physical Exam Physical Exam Constitutional: Elderly female in no distress. HENT: Normocephalic, atraumatic, bilateral external ears normal, oropharynx moist, no oral exudates, nose normal. Eyes: PERRLA, EOMI, conjunctiva normal, no discharge. Neck: Normal range of motion, no tenderness, supple, no stridor. Non tender to palpation. Cardiovascular:Heart rate regular rhythm, positive systolic murmur Lungs & Thorax: Bilateral breath sounds clear to auscultation Abdomen: Bowel sounds normal, soft, no tenderness, no masses, no pulsatile masses. Skin: ecchymosis and skin tears noted on left forearm Extremities: Left forearm: ecchymosis and swelling to proximal forearm. Tender with ROM of elbow. Wrist has FROM without difficulty; fingers with no trauma. Neurologic: Awake but non verbal. Moves extremities spontaneously. Current Patient Data Vital Signs Vital Signs Date Time Temp Pulse Resp B/P (MAP) Pulse Ox O2 Delivery O2 Flow Rate FiO2 11/11/17 00:57 98.1 73 16 154/95 (114) 93 Room Air 98.1 Radiology/Procedures Radiology/Procedures Left elbow interpreted by myself at 0115 am: anterior fat pad non displaced. no obvious fracture seen Left forearm interpreted by myself at 0115 am with no fracture seen. Course & Med Decision Making Course & Med Decision Making Evaluated patient upon arrival. Xrays ordered. At 0115 am xrays with no obvious fracture. Placed in sling. Reviewed findings with patient and will return to [facility]. I have spoken with the patient and/or caregivers. I have explained the patient' s condition, diagnosis and treatment plan based on the information available to me at this time. I have answered the patient's and/or caregiver's questions and addressed any concerns. The patient and/or caregivers have as good an understanding of the patient's diagnosis, condition and treatment plan as can be expected at this point. The patient's condition is stable and appropriate for discharge from the emergency department. The patient will pursue further outpatient evaluation with the primary care physician or other designated or consulting physician as outlined in the discharge instructions. The patient and/or caregivers are agreeable to this plan of care and follow-up instructions have been explained in detail. The patient and/or caregivers have received these instructions in written format and have expressed an understanding of the discharge instructions. The patient and/or caregivers are aware that any significant change in condition or worsening of symptoms should prompt an immediate return to this or the closest emergency department or a call to 911. Dragon Disclaimer Dragon Disclaimer This electronic medical record was generated, in whole or in part, using a voice recognition dictation system. Departure Departure Impression: Primary Impression: Fall Additional Impression: Left elbow contusion Disposition: 03 TRANSFER SNF Referrals: AARON SOLORIO MD (PCP) Patient Instructions: Elbow Contusion Additional Instructions: WEAR SLING FOR COMFORT. ICE THE AREA FOR COMFORT FIRST 24HOURS. TYLENOL NEEDED FOR PAIN. Problem Qualifiers Primary Impression: Fall Encounter type: initial encounter Qualified Codes: W19.XXXA - Unspecified fall, initial encounter Additional Impression: Left elbow contusion Encounter type: initial encounter Qualified Codes: S50.02XA - Contusion of left elbow, initial encounter HANNAH SANTIAGO MD Nov 11, 2017 01:04
[2017-11-11 02:00] VITALS: BP 156/80
[2017-11-11] MEDS ORDERED: ACETAMINOPHEN 500 MG TABLET PO ONE (02:15)
--- NOTE | 2017-11-11 08:16 | RAD ---
Indication: Fall with left arm pain. Time of exam 0116 hours. 2 views of the left forearm were obtained. Alignment at the elbow and wrist appears normal. The radius and ulna appear intact. No fractures are seen. Impression: No acute bony abnormality is detected.
--- NOTE | 2017-11-11 08:17 | RAD ---
Indication: Fall with left elbow pain. Time of exam 0117 hours. 3 views of the left elbow were obtained. Alignment is normal. The joint spaces are well-maintained. No fracture, dislocation or effusion is seen. Impression: No acute abnormality is detected.
== END 2017-11-11 02:17 | disposition home or self-care (01) ==
LOC: ER 00:50
DX: S50.02XA Contusion of left elbow, initial encounter (principal); E78.00 Pure hypercholesterolemia, unspecified; F03.90 Unspecified dementia, unspecified severity, without behavioral disturbance, psychotic disturbance, mood disturbance, and anxiety; I48.91 Unspecified atrial fibrillation; I25.10 Atherosclerotic heart disease of native coronary artery without angina pectoris; K21.9 Gastro-esophageal reflux disease without esophagitis; I25.2 Old myocardial infarction; I13.0 Hypertensive heart and chronic kidney disease with heart failure and stage 1 through stage 4 chronic kidney disease, or unspecified chronic kidney disease; N18.9 Chronic kidney disease, unspecified; I50.9 Heart failure, unspecified; Z95.0 Presence of cardiac pacemaker; Z95.2 Presence of prosthetic heart valve; Z88.2 Allergy status to sulfonamides; Z88.8 Allergy status to other drugs, medicaments and biological substances; Z91.041 Radiographic dye allergy status; Z74.01 Bed confinement status; W18.39XA Other fall on same level, initial encounter; Y93.89 Activity, other specified; Y99.8 Other external cause status; Y92.89 Other specified places as the place of occurrence of the external cause
CPT/HCPCS: 73080; 73090; 99284

== ENCOUNTER 2018-11-24 08:08 | Emergency (ER) | payer BC ==
[~2018-11-24] VITALS: Ht 162.6 cm; Wt 48.5 kg
[~2018-11-24 08:08] MED LIST changes: -WARF2TAB7 PO; +WARF2TAB96 PO
[2018-11-24] MEDS ORDERED: dilTIAZem IV PUSH 25 MG/5 ML VIAL IVP ONE ×2 (08:45→09:30)
--- NOTE | 2018-11-24 08:51 | PHYS DOC ---
Past Medical History Past Medical History: A-Fib, CAD, CHF, Dementia, Depression, GERD, High Cholesterol, Heart Disease, Hypertension, [place], Renal Disease, UTI Additional Past Medical Histor: ENDOCARDITIS, OSTEOPOROSIS Past Surgical History: Pacemaker, Other Additional Past Surgical Histo: MITRAL VALVE REPLACEMENT, Pacemaker removed, Skin CA removed Alcohol Use: None Drug Use: None Adult General Chief Complaint Chief Complaint: OTHER COMPLAINTS HPI HPI Patient is a 88 year old female brought to the ER via EMS with reports of a lump on her neck. Pt is currently on hospice for atrial fibrillation. She denies any chest pain, shortness of breath, neck pain, injury, or headache. Per pt's daughter she was placed on 4L of oxygen via nasal cannula at all times yesterday for wheezing. Pt's daughter states that the lump has been present before but goes away and has never been diagnosed with what causes it. Review of Systems Review of Systems Constitutional: Denies fever or chills [] HENT: Denies nasal congestion or sore throat; see HPI Respiratory: Denies cough or shortness of breath [] Cardiovascular: No additional information not addressed in HPI [] GI: Denies abdominal pain, nausea, vomiting, or diarrhea [] Integument: Denies rash or skin lesions [] Neurologic: Denies headache, focal weakness or sensory changes [] Complete systems were reviewed and found to be within normal limits, except as documented in this note. Current Medications Current Medications Current Medications Medications (Trade) Dose Ordered Sig/Alan Start Time Stop Time Status Last Admin Dose Admin Diltiazem HCl (Cardizem 24hr Cd) 180 mg DAILY 11/25/18 09:00 UNV Diltiazem HCl (Cardizem Iv Push) 10 mg 1X ONCE 11/24/18 09:30 11/24/18 09:30 DC Allergies Allergies Allergies Coded Allergies Type Severity Reaction Last Updated Verified sulfamethoxazole Allergy Intermediate 09/08/16 Yes trimethoprim Allergy Intermediate 09/08/16 Yes zolpidem Allergy Intermediate 06/23/14 Yes Beta-Blockers (Beta-Adrenergic Bloc Adverse Reaction Severe has cardiac pauses 12/30/16 Yes Calcium Channel Blocking Agent Dilt Adverse Reaction Severe has cardiac pauses 12/30/16 Yes Physical Exam Physical Exam Constitutional: Well developed, well nourished, no acute distress, non-toxic appearance. [] HENT: Normocephalic, atraumatic, bilateral external ears normal, oropharynx moist, no oral exudates, nose normal. [] Eyes: conjunctiva normal, no discharge. [] Neck: Normal range of motion, no tenderness, supple, no stridor; 4 cm x 2 cm pulsating area noted to anterior neck, no bruit noted, non-tender[] Cardiovascular:Heart rate irregularly irregular rhythm, no murmur [] Lungs & Thorax: Bilateral breath sounds clear to auscultation [] Abdomen: Bowel sounds normal, soft, no tenderness, no masses, no pulsatile masses. [] Skin: Warm, dry, no erythema, no rash. [] Extremities: No tenderness, no cyanosis, no clubbing, ROM intact, no edema. [] Neurologic: Alert and oriented X 3, normal motor function, normal sensory function, no focal deficits noted. [] Psychologic: Affect normal, judgement normal, mood normal. [] Current Patient Data Vital Signs Vital Signs Date Time Temp Pulse Resp B/P (MAP) Pulse Ox O2 Delivery O2 Flow Rate FiO2 11/24/18 08:09 98.8 130 32 118/80 (93) 92 Nasal Cannula 5.0 98.8 Lab Values Laboratory Tests Test 11/24/18 08:45 White Blood Count 8.1 x10^3/uL (4.0-11.0) Red Blood Count 3.88 x10^6/uL (3.50-5.40) Hemoglobin 11.6 g/dL (12.0-15.5) L Hematocrit 34.3 % (36.0-47.0) L Mean Corpuscular Volume 88 fL (79-100) Mean Corpuscular Hemoglobin 30 pg (25-35) Mean Corpuscular Hemoglobin Concent 34 g/dL (31-37) Red Cell Distribution Width 14.8 % (11.5-14.5) H Platelet Count 276 x10^3/uL (140-400) Neutrophils (%) (Auto) 73 % (31-73) Lymphocytes (%) (Auto) 13 % (24-48) L Monocytes (%) (Auto) 12 % (0-9) H Eosinophils (%) (Auto) 2 % (0-3) Basophils (%) (Auto) 1 % (0-3) Neutrophils # (Auto) 5.9 x10^3uL (1.8-7.7) Lymphocytes # (Auto) 1.0 x10^3/uL (1.0-4.8) Monocytes # (Auto) 0.9 x10^3/uL (0.0-1.1) Eosinophils # (Auto) 0.2 x10^3/uL (0.0-0.7) Basophils # (Auto) 0.1 x10^3/uL (0.0-0.2) Prothrombin Time 28.0 SEC (11.7-14.0) H Prothrombin Time INR 2.6 (0.8-1.1) H Sodium Level 143 mmol/L (136-145) Potassium Level 3.7 mmol/L (3.5-5.1) Chloride Level 103 mmol/L (98-107) Carbon Dioxide Level 32 mmol/L (21-32) Anion Gap 8 (6-14) Blood Urea Nitrogen 38 mg/dL (7-20) H Creatinine 1.7 mg/dL (0.6-1.0) H Estimated GFR (Cockcroft-Gault) 28.5 BUN/Creatinine Ratio 22 (6-20) H Glucose Level 109 mg/dL (70-99) H Calcium Level 9.1 mg/dL (8.5-10.1) Magnesium Level 2.2 mg/dL (1.8-2.4) Total Bilirubin 0.5 mg/dL (0.2-1.0) Aspartate Amino Transferase (AST) 37 U/L (15-37) Alanine Aminotransferase (ALT) 34 U/L (14-59) Alkaline Phosphatase 104 U/L (46-116) Creatine Kinase 79 U/L (26-192) Creatine Kinase MB (Mass) 2.7 ng/mL (0.0-3.6) Creatine Kinase MB Relative Index 3.4 % (0-4) Troponin I Quantitative 1.033 ng/mL (0.000-0.055) Total Protein 7.5 g/dL (6.4-8.2) Albumin 3.4 g/dL (3.4-5.0) Albumin/Globulin Ratio 0.8 (1.0-1.7) L Laboratory Tests 11/24/18 08:45 Laboratory Tests 11/24/18 08:45 EKG EKG A-fib with RVR, non-specific intraventricular block contour abnormality consistent with anteroseptal infarct, STEMI read by Dr. Montoya[] Radiology/Procedures Radiology/Procedures [] Course & Med Decision Making Course & Med Decision Making Pertinent Labs and Imaging studies reviewed. (See chart for details) 0910- pt's daughter who is POA requests that no further treatment is provided, patient is on hospice and does not want any interventions for STEMI. Daughter requests that patient be discharged back to half-way facility at this time. Hospice nurse at bedside. 09:50: This patient was referred to the emergency department for evaluation of a pulsating mass at the base of the right neck. According to the daughter, the patient had had this for many years. The patient is currently in an assisted living facility and on hospice. During the ED course, the patient declines workup of the mass. She is noted to have some tachycardia and is in atrial fibrillation. She did not have her normal diltiazem dose this morning because she was sent to the ER. EKG however is concerning for STEMI. There is some ST elevations in leads V2 V3 V4 as well as some depressions in V5 and V6. These are new changes when compared to an older EKG. Patient also has some inferior change of morphology of the waves compared to the EKG from a year ago. Patient did have mildly elevated troponin as well. These findings were discussed with the patient as well as her daughter. They were explicitly informed that the patient could be having an acute myocardial infarction. Given the patient's status on hospice, they decline any further evaluation or treatment for this condition. The patient is aware that this could result in earlier than expected. The patient requests discharge from the ER. Her wishes are honored and she is d/c'd. Encouraged to return if she changes her mind or has any new symptoms she would like addressed. Dragon Disclaimer Dragon Disclaimer This electronic medical record was generated, in whole or in part, using a voice recognition dictation system. Departure Departure Impression: Primary Impression: Atrial fibrillation with RVR Additional Impression: Pulsatile neck mass Disposition: 01 HOME, SELF-CARE Condition: STABLE Referrals: AARON SOLORIO MD (PCP) Patient Instructions: Atrial Fibrillation, [id number] Additional Instructions: Please return to the ER if your symptoms worsen. Problem Qualifiers SHAUN AMBROSE APRN Nov 24, 2018 08:51 ALY MONTOYA DO Nov 24, 2018 09:54
[2018-11-24 08:55] LABS: BASO # 0.1 x10^3/uL (0.0-0.2); BASO % 1 % (0-3); EOS # 0.2 x10^3/uL (0.0-0.7); EOS % 2 % (0-3); HEMATOCRIT 34.3 % (36.0-47.0); HEMOGLOBIN 11.6 g/dL (12.0-15.5); LYMPH % 13 % (24-48); MEAN CORPUSCULAR HEMOGLOBIN 30 pg (25-35); MEAN CORPUSCULAR HGB CONC 34 g/dL (31-37); MEAN CORPUSCULAR VOLUME 88 fL (79-100); MONO # 0.9 x10^3/uL (0.0-1.1); MONO % 12 % (0-9); NEUT # 5.9 x10^3uL (1.8-7.7); NEUT % 73 % (31-73); PLATELET COUNT 276 x10^3/uL (140-400); RED BLOOD COUNT 3.88 x10^6/uL (3.50-5.40); RED CELL DISTRIBUTION WIDTH 14.8 % (11.5-14.5); WHITE BLOOD COUNT 8.1 x10^3/uL (4.0-11.0)
[2018-11-24 09:09] LABS: CALCIUM 9.1 mg/dL (8.5-10.1); CREATININE 1.7 mg/dL (0.6-1.0); GFR 28.5; POTASSIUM 3.7 mmol/L (3.5-5.1)
[2018-11-24 09:15] LABS: ALBUMIN 3.4 g/dL (3.4-5.0); ALBUMIN/GLOBULIN RATIO 0.8 (1.0-1.7); MAGNESIUM 2.2 mg/dL (1.8-2.4); TOTAL BILIRUBIN 0.5 mg/dL (0.2-1.0); TOTAL PROTEIN 7.5 g/dL (6.4-8.2)
[2018-11-24 10:11] VITALS: BP 119/88
--- NOTE | 2018-11-26 07:04 | EKG ---
[facility] [address] [place] [address] Test Date: 2018-11-24 Test Time: 08:48:06 Pat Name: MARCELO PULIDO Department: Room: Gender: F Lead Pastor: : 1930 Requested By: SHAUN AMBROSE Order Number: [id number] Reading MD: Aristides Bojorquez Measurements Intervals [place] Rate: 119 P: ME: QRS: -33 QRSD: 138 T: 71 QT: 340 QTc: 486 Interpretive Statements ATRIAL FIBRILLATION LOW LIMB LEAD VOLTAGE NON SPECIFIC INTRAVENTRICULAR BLOCK QRS(T) CONTOUR ABNORMALITY CONSISTENT WITH ANTEROSEPTAL INFARCT ABNORMAL ECG Electronically Signed On 11-27-2018 17:17:47 [facility] by Aristides Bojorquez
== END 2018-11-24 10:29 | disposition home or self-care (01) ==
LOC: ER 08:08
DX: I48.0 Paroxysmal atrial fibrillation (principal); R22.1 Localized swelling, mass and lump, neck; I25.10 Atherosclerotic heart disease of native coronary artery without angina pectoris; I11.0 Hypertensive heart disease with heart failure; I50.9 Heart failure, unspecified; F32.9 Major depressive disorder, single episode, unspecified; K21.9 Gastro-esophageal reflux disease without esophagitis; R94.31 Abnormal electrocardiogram [ECG] [EKG]; Z85.828 Personal history of other malignant neoplasm of skin
CPT/HCPCS: 36415; 80053; 82553; 83735; 84484; 85025; 85610; 93005; 99284